=== PATIENT | female | born 1950 | race Hispanic/Latino ===

== ENCOUNTER 2018-01-03 14:47 | Inpatient (IN) | payer MEDICARE ==
[~2018-01-03] VITALS: Ht 162.6 cm; Wt 75.7 kg
[~2018-01-03 14:47] MED LIST: ADVAIR IH; ALBU6.7H IH; ASPI-1197 PO; ATOR10 PO; DRON400T2 PO; ESOM40CA PO; ISOS20TA7 PO; LINA5TAB PO; LISI10TA7 PO; METF500T6 PO; METH4TAB3 PO; METOPROLOL; METOPROLOL PO; NITR4.1S2 TL; PRAS10TA6 PO; VITAMIN D2 PO
[2018-01-03 15:25] LABS: BASOPHILS % (AUTO) 0.7 % (0.0-5.0); EOSINOPHILS % (AUTO) 0.8 % (0.0-8.0); HEMATOCRIT 41.3 % (36-48); LYMPHOCYTES % (AUTO) 13.3 % (21.0-51.0); MEAN CORPUSCULAR HEMOGLOBIN 28.4 pg (27.0-33.0); MEAN CORPUSCULAR HGB CONC 32.8 g/dL (32.0-36.0); MEAN CORPUSCULAR VOLUME 86.5 fL (79-99); MONOCYTES % (AUTO) 8.1 % (3.0-13.0); NEUTROPHILS % (AUTO) 77.1 % (40.0-77.0); PLATELET COUNT (AUTO) 185 K/uL (130-400); RED BLOOD CELL COUNT(AUTO) 4.77 MIL/uL (4.00-5.50); RED CELL DISTRIBUTION WIDTH 13.5 % (11.0-15.5); WHITE BLOOD COUNT (AUTO) 8.7 K/uL (4.8-10.8)
[2018-01-03 15:38] LABS: CREATININE 0.9 mg/dL (0.5-1.5); POTASSIUM 4.3 mmol/L (3.5-5.1)
[2018-01-03 15:43] LABS: ALBUMIN 3.7 g/dL (3.5-5.0); BILIRUBIN,TOTAL 0.5 mg/dL (0.2-1.0)
[2018-01-03 15:53] LABS: CREATINE KINASE MB 0.8 ng/mL (0.5-3.6); CREATINE KINASE, TOTAL 72 U/L (21-232); MYOGLOBIN 52 ng/mL (10-92); TROPONIN I < 0.04 ng/mL (0.00-0.06)
[2018-01-03] MEDS ORDERED: IPRATROPIUM/ALBUTEROL SULFATE 3 ML SOLUTION IH ONE ×4 (15:57→23:05)
[2018-01-03] MEDS ORDERED: METHYLPREDNISOLONE SOD SUCC 40MG/ML 1ML ONE (16:18)
[2018-01-03] MEDS ORDERED: AZITHROMYCIN 500MG+NS 250ML 250 ML IV ONE (20:05)
[2018-01-03] MEDS ORDERED: METHYLPREDNISOLONE SOD SUCC 125MG/2ML VIAL ONE (22:24)
[2018-01-04] VITALS (7 sets, daily range): BP systolic 111–166; BP diastolic 63–98
[2018-01-04] MEDS ORDERED: SUB TO ALBUTEROL 2.5MG/3ML NEBULES PER P&T IH SCH (02:30)
[2018-01-04] MEDS ORDERED: RANO500T3 PO (02:53)
[2018-01-04] MEDS ORDERED: ISOS60TA4 PO (02:53)
[2018-01-04] MEDS ORDERED: METF500T6 PO (02:53)
[2018-01-04] MEDS ORDERED: ALEN35TA31 PO (02:53)
[2018-01-04] MEDS ORDERED: FLUT1AER IH (02:53)
[2018-01-04] MEDS ORDERED: VITA1TAB39 PO (02:53)
[2018-01-04] MEDS ORDERED: METO-409 PO (02:53)
[2018-01-04] MEDS ORDERED: RIVA20TA PO (02:53)
[2018-01-04 03:45] LABS: HEMATOCRIT 40.6 % (36-48); MEAN CORPUSCULAR HEMOGLOBIN 28.9 pg (27.0-33.0); MEAN CORPUSCULAR HGB CONC 33.4 g/dL (32.0-36.0); MEAN CORPUSCULAR VOLUME 86.3 fL (79-99); NUCLEATED RED BLOOD CELLS 0.1 % (0.0-0.19); PLATELET COUNT (AUTO) 172 K/uL (130-400); RED BLOOD CELL COUNT(AUTO) 4.71 MIL/uL (4.00-5.50); RED CELL DISTRIBUTION WIDTH 13.8 % (11.0-15.5)
[2018-01-04 04:02] LABS: CREATININE 0.9 mg/dL (0.5-1.5); POTASSIUM 4.3 mmol/L (3.5-5.1)
[2018-01-04] MEDS ORDERED: NITROGLYCERIN 0.4 MG SL TAB SL PRN (05:00)
[2018-01-04] MEDS ORDERED: METHYLPREDNISOLONE SOD SUCC 125MG/2ML VIAL ONE (05:35)
[2018-01-04] MEDS ORDERED: GUAIFENESIN SUGAR-FREE 100 MG/5 ML UDCUP PO PRN (07:00)
[2018-01-04] MEDS ORDERED: ONDANSETRON HCL MDV 20ML 2 MG/ML VIAL IVP PRN (07:00)
[2018-01-04] MEDS ORDERED: ACETAMINOPHEN 325 MG TAB PO PRN (07:00)
[2018-01-04] MEDS: INSULIN R PO SSI SQ SCH ×4 (07:16→21:19)
[2018-01-04] MEDS ORDERED: ERGOCALCIFEROL (VITAMIN D2) 50,000 UNIT CAPSULE PO SCH (09:00)
[2018-01-04] MEDS ORDERED: ALENDRONATE SODIUM 35 MG TAB PO SCH (09:00)
[2018-01-04] MEDS: ***HM***Metoprolol Succinate 100 MG PO SCH (09:00)
[2018-01-04] MEDS: AZITHROMYCIN 500MG+NS 250ML 250 ML IV SCH (09:00)
[2018-01-04] MEDS: PANTOPRAZOLE SODIUM 40 MG TABLET.DR PO SCH (09:38)
[2018-01-04] MEDS: FAMOTIDINE 20MG TAB 20 MG TAB PO SCH ×2 (09:38→21:21)
[2018-01-04] MEDS: RANOLAZINE 500 MG TAB.SR.12H PO SCH ×2 (09:38→21:20)
[2018-01-04] MEDS: FOLIC ACID/VITAMIN B COMP W-C 1 MG CAPSULE PO SCH (09:38)
[2018-01-04] MEDS: ISOSORBIDE MONO 30MG TAB SR PO SCH (09:40)
[2018-01-04] MEDS: ASPIRIN 81MG TAB.CHEW PO SCH (09:41)
[2018-01-04] MEDS: DRONEDARONE HYDROCHLORIDE 400 MG TABLET PO SCH ×2 (09:41→21:20)
[2018-01-04] MEDS: LINAGLIPTIN 5 MG TABLET PO SCH (09:41)
[2018-01-04] MEDS ORDERED: BENZOCAINE/MENTH/CETYLPYRD CL 1 EACH LOZENGE MM PRN ×2 (09:45→10:15)
[2018-01-04] MEDS: METFORMIN HCL 500 MG TABLET PO SCH ×2 (09:51→18:26)
[2018-01-04] MEDS ORDERED: IPRATROPIUM/ALBUTEROL SULFATE 3 ML SOLUTION IH SCH (10:15)
[2018-01-04] MEDS ORDERED: ALBUTEROL SULFATE 0.083% 2.5 MG/3 ML INH IH PRN (10:15)
[2018-01-04] MEDS: IPRATROPIUM/ALBUTEROL SULFATE 3 ML SOLUTION IH SCH ×3 (11:04→23:09)
[2018-01-04] MEDS: METHYLPREDNISOLONE SOD SUCC 125MG/2ML VIAL IVP SCH ×2 (11:41→18:26)
[2018-01-04] MEDS: BENZONATATE 100 MG CAPSULE PO SCH ×2 (13:30→21:21)
[2018-01-04] MEDS ORDERED: RIVAROXABAN 20 MG TABLET PO SCH (17:00)
[2018-01-04] MEDS ORDERED: LISINOPRIL 10 MG TABLET PO SCH (21:00)
[2018-01-04] MEDS ORDERED: FLUTICASONE/VILANTEROL 1 EACH AER.POW.BA IH SCH (21:00)
[2018-01-04] MEDS ORDERED: ATORVASTATIN CALCIUM 10 MG TABLET PO SCH (21:00)
[2018-01-05] MEDS: GUAIFENESIN-CODEINE 5 ML SYRUP PO PRN ×2 (00:23→10:41)
[2018-01-05] MEDS: METHYLPREDNISOLONE SOD SUCC 125MG/2ML VIAL IVP SCH ×3 (02:23→12:29)
[2018-01-05 03:15] VITALS: BP 120/70
[2018-01-05] MEDS: IPRATROPIUM/ALBUTEROL SULFATE 3 ML SOLUTION IH SCH ×2 (05:57→11:07)
[2018-01-05] MEDS: INSULIN R PO SSI SQ SCH (06:45)
[2018-01-05 08:00] VITALS: BP 138/73
[2018-01-05] MEDS: ***HM***Metoprolol Succinate 100 MG PO SCH (09:00)
[2018-01-05] MEDS: FAMOTIDINE 20MG TAB 20 MG TAB PO SCH (10:36)
[2018-01-05] MEDS: ISOSORBIDE MONO 30MG TAB SR PO SCH (10:36)
[2018-01-05] MEDS: RANOLAZINE 500 MG TAB.SR.12H PO SCH (10:36)
[2018-01-05] MEDS: FOLIC ACID/VITAMIN B COMP W-C 1 MG CAPSULE PO SCH (10:36)
[2018-01-05] MEDS: DRONEDARONE HYDROCHLORIDE 400 MG TABLET PO SCH (10:37)
[2018-01-05] MEDS: ASPIRIN 81MG TAB.CHEW PO SCH (10:37)
[2018-01-05] MEDS: BENZONATATE 100 MG CAPSULE PO SCH (10:37)
[2018-01-05] MEDS: PANTOPRAZOLE SODIUM 40 MG TABLET.DR PO SCH (10:37)
[2018-01-05] MEDS: METFORMIN HCL 500 MG TABLET PO SCH (10:37)
[2018-01-05] MEDS: LINAGLIPTIN 5 MG TABLET PO SCH (10:37)
[2018-01-05] MEDS: AZITHROMYCIN 500MG+NS 250ML 250 ML IV SCH (10:43)
[2018-01-05 12:00] VITALS: BP 144/96
== END 2018-01-05 14:13 | disposition home or self-care (01) | DRG 203 ==
LOC: EDH 14:47 → OBSVTOIN 17:20 → EDHIP 17:20 → 3AH 01-04 01:07
PROVIDERS: ADMIT Internal Medicine; ATTEND Internal Medicine
DX: J45.901 Unspecified asthma with (acute) exacerbation (principal); I48.91 Unspecified atrial fibrillation; E11.9 Type 2 diabetes mellitus without complications; E78.5 Hyperlipidemia, unspecified; I10 Essential (primary) hypertension; I25.10 Atherosclerotic heart disease of native coronary artery without angina pectoris; Z79.01 Long term (current) use of anticoagulants; Z87.891 Personal history of nicotine dependence; Z90.710 Acquired absence of both cervix and uterus; Z95.0 Presence of cardiac pacemaker; Z95.5 Presence of coronary angioplasty implant and graft
CPT/HCPCS: 36415; 71046; 80048; 80053; 82550; 82553; 82948; 83874; 84484; 85025; 85027; 87804; 87880; 93005; 94640; 94664; 99291; J0456; J1815; J2920; J2930

== ENCOUNTER 2018-02-15 05:47 | Inpatient (IN) | payer MEDICARE ==
[~2018-02-15] VITALS: Ht 162.6 cm; Wt 79.8 kg
[~2018-02-15 05:47] MED LIST changes: -ADVAIR IH; +ALEN35TA31 PO; +FLUT1AER IH; -ISOS20TA7 PO; +ISOS60TA4 PO; -METH4TAB3 PO; +METO-409 PO; -METOPROLOL; -METOPROLOL PO; -PRAS10TA6 PO; +RANO500T3 PO; +RIVA20TA PO; +VITA1TAB39 PO
[2018-02-15 06:23] LABS: BASOPHILS % (AUTO) 0.6 % (0.0-5.0); EOSINOPHILS % (AUTO) 0.8 % (0.0-8.0); HEMATOCRIT 42.5 % (36-48); MEAN CORPUSCULAR HEMOGLOBIN 28.1 pg (27.0-33.0); MEAN CORPUSCULAR HGB CONC 33.1 g/dL (32.0-36.0); MEAN CORPUSCULAR VOLUME 84.7 fL (79-99); MONOCYTES % (AUTO) 6.5 % (3.0-13.0); NEUTROPHILS % (AUTO) 71.1 % (40.0-77.0); PLATELET COUNT (AUTO) 178 K/uL (130-400); RED BLOOD CELL COUNT(AUTO) 5.02 MIL/uL (4.00-5.50); WHITE BLOOD COUNT (AUTO) 9.5 K/uL (4.8-10.8)
[2018-02-15 06:33] LABS: APPEARANCE,URINE Clear (CLEAR); BILIRUBIN,URINE Negative (NEGATIVE); COLOR,URINE Yellow (YELLOW); GLUCOSE, URINE (UA) 500 mg/dL (NEGATIVE); KETONES,URINE Negative (NEGATIVE); LEUKOCYTE ESTERASE ,URINE Negative (NEGATIVE); NITRATE,URINE Negative (NEGATIVE); OCCULT BLOOD,URINE Trace (NEGATIVE); PROTEIN,URINE Negative (NEGATIVE)
[2018-02-15] MEDS ORDERED: MECLIZINE HCL 25 MG TABLET ONE (06:34)
[2018-02-15 06:37] LABS: CREATININE 0.8 mg/dL (0.5-1.5); POTASSIUM 4.2 mmol/L (3.5-5.1)
[2018-02-15 06:38] LABS: INR 1.09 (0.85-1.15); PARTIAL THROMBOPLASTIN TIME 25.7 SEC (26.3-35.5); PROTHROMBIN TIME 11.4 SEC (9.6-11.6)
[2018-02-15 06:42] LABS: ALBUMIN 3.2 g/dL (3.5-5.0); BILIRUBIN,TOTAL 0.4 mg/dL (0.2-1.0); TOTAL PROTEIN, SERUM 6.2 g/dL (6.0-8.3)
[2018-02-15 07:38] LABS: BACTERIA,URINE Rare /HPF (None Seen); SQUAMOUS EPITHELIAL CELL,UR Rare /HPF (0-2); WBC,URINE 0-1 /HPF (0-1)
[2018-02-15 07:39] LABS: MUCUS,URINE Few LPF (None Seen)
[2018-02-15] MEDS ORDERED: ASPIRIN 325 MG TABLET ONE (10:56)
[2018-02-15] MEDS ORDERED: DEXTROSE 50%-WATER 50 ML DISP.SYRIN IV PRN (11:00)
[2018-02-15] MEDS ORDERED: GLUCAGON 1MG KIT 1 MG ML IM PRN (11:00)
[2018-02-15 11:20] VITALS: BP 148/99
[2018-02-15] MEDS: INSULIN HUMULIN R 100 UNIT/ML 3ML SQ SCH ×3 (11:30→20:55)
[2018-02-15] MEDS ORDERED: HYDRALAZINE HCL 20 MG/ML VIAL IV PRN (11:45)
[2018-02-15] MEDS ORDERED: SODIUM CHLORIDE 0.9% 10 ML VIAL IVP PRN (11:45)
[2018-02-15] MEDS ORDERED: MECLIZINE HCL 25 MG TABLET PO PRN (11:45)
[2018-02-15] MEDS ORDERED: LINA5TAB PO (14:16)
[2018-02-15] MEDS ORDERED: DILT180C47 PO (14:16)
[2018-02-15 16:00] VITALS: BP 127/85
[2018-02-15 17:02] LABS: AMPHET/METH SCREEN,URINE NEGATIVE (NEGATIVE); BARBITURATE SCREEN, URINE NEGATIVE (NEGATIVE); BENZODIAZEPINES SCREEN,URINE NEGATIVE (NEGATIVE); CANNABINOID SCREEN,URINE NEGATIVE (NEGATIVE); COCAINE SCREEN,URINE NEGATIVE (NEGATIVE); OPIATE SCREEN,URINE NEGATIVE (NEGATIVE); PHENCYCLIDINE SCREEN,URINE NEGATIVE (NEGATIVE)
[2018-02-15 19:54] VITALS: BP 137/79
[2018-02-15 23:44] VITALS: BP 139/72
[2018-02-16 04:00] VITALS: BP 137/87
[2018-02-16] MEDS: INSULIN HUMULIN R 100 UNIT/ML 3ML SQ SCH ×4 (06:19→20:46)
[2018-02-16 07:21] VITALS: BP 151/104
[2018-02-16] MEDS ORDERED: ASPIRIN 325MG EC TAB 325 MG TABLET.DR PO SCH (09:00)
[2018-02-16 10:57] VITALS: BP 107/70
[2018-02-16] MEDS: METFORMIN HCL 500 MG TABLET PO SCH ×2 (11:19→16:25)
[2018-02-16 16:15] VITALS: BP 118/66
[2018-02-16 19:47] VITALS: BP 119/73
[2018-02-16] MEDS: DRONEDARONE HYDROCHLORIDE 400 MG TABLET PO SCH (20:53)
[2018-02-16] MEDS: RANOLAZINE 500 MG TAB.SR.12H PO SCH (20:53)
[2018-02-16] MEDS: ATORVASTATIN CALCIUM 10 MG TABLET PO SCH (20:53)
[2018-02-17] VITALS (7 sets, daily range): BP systolic 92–142; BP diastolic 61–79
[2018-02-17 04:17] LABS: BASOPHILS % (AUTO) 0.3 % (0.0-5.0); EOSINOPHILS % (AUTO) 0.5 % (0.0-8.0); HEMATOCRIT 40.3 % (36-48); LYMPHOCYTES % (AUTO) 19.6 % (21.0-51.0); MEAN CORPUSCULAR HEMOGLOBIN 28.4 pg (27.0-33.0); MEAN CORPUSCULAR HGB CONC 33.4 g/dL (32.0-36.0); MEAN CORPUSCULAR VOLUME 84.8 fL (79-99); MONOCYTES % (AUTO) 5.1 % (3.0-13.0); NEUTROPHILS % (AUTO) 74.5 % (40.0-77.0); PLATELET COUNT (AUTO) 193 K/uL (130-400); RED BLOOD CELL COUNT(AUTO) 4.76 MIL/uL (4.00-5.50); RED CELL DISTRIBUTION WIDTH 16.5 % (11.0-15.5); WHITE BLOOD COUNT (AUTO) 10.9 K/uL (4.8-10.8)
[2018-02-17 04:48] LABS: POTASSIUM 4.4 mmol/L (3.5-5.1)
[2018-02-17] MEDS: INSULIN HUMULIN R 100 UNIT/ML 3ML SQ SCH ×4 (05:59→22:20)
[2018-02-17] MEDS: METFORMIN HCL 500 MG TABLET PO SCH ×3 (08:00→17:00)
[2018-02-17] MEDS ORDERED: DILTIAZEM HCL 120 MG CAP.SR.24H PO SCH (09:00)
[2018-02-17] MEDS ORDERED: LISINOPRIL 10 MG TABLET PO SCH (09:00)
[2018-02-17] MEDS ORDERED: RIVAROXABAN 20 MG TABLET PO SCH (09:00)
[2018-02-17] MEDS ORDERED: DILTIAZEM HCL 180 MG CAP.SR.24H PO SCH (09:00)
[2018-02-17] MEDS: RANOLAZINE 500 MG TAB.SR.12H PO SCH ×2 (09:35→22:22)
[2018-02-17] MEDS: LINAGLIPTIN 5 MG TABLET PO SCH (09:35)
[2018-02-17] MEDS: DRONEDARONE HYDROCHLORIDE 400 MG TABLET PO SCH ×2 (09:35→22:22)
[2018-02-17] MEDS: VITAMIN B COMPLEX 1 CAPSULE PO SCH (09:35)
[2018-02-17] MEDS ORDERED: ONDANSETRON HCL 4 MG/2 ML VIAL ONE (13:20)
[2018-02-17] MEDS ORDERED: SODIUM CHLORIDE 0.9% 1000ML 1,000 ML IV ONE (13:34)
[2018-02-17] MEDS: PANTOPRAZOLE SODIUM 40 MG TABLET.DR PO SCH (18:16)
[2018-02-17] MEDS: ATORVASTATIN CALCIUM 10 MG TABLET PO SCH (22:22)
[2018-02-18] VITALS (13 sets, daily range): BP systolic 100–132; BP diastolic 63–76
[2018-02-18 04:00] LABS: INR 0.98 (0.85-1.15); PARTIAL THROMBOPLASTIN TIME 24.7 SEC (26.3-35.5); PROTHROMBIN TIME 10.3 SEC (9.6-11.6)
[2018-02-18] MEDS: INSULIN HUMULIN R 100 UNIT/ML 3ML SQ SCH ×4 (05:48→21:00)
[2018-02-18] MEDS: PANTOPRAZOLE SODIUM 40 MG TABLET.DR PO SCH (05:48)
[2018-02-18] MEDS: METFORMIN HCL 500 MG TABLET PO SCH ×3 (07:41→15:27)
[2018-02-18] MEDS: LINAGLIPTIN 5 MG TABLET PO SCH (09:00)
[2018-02-18] MEDS: VITAMIN B COMPLEX 1 CAPSULE PO SCH (09:00)
[2018-02-18] MEDS: DRONEDARONE HYDROCHLORIDE 400 MG TABLET PO SCH ×2 (10:09→21:47)
[2018-02-18] MEDS: RANOLAZINE 500 MG TAB.SR.12H PO SCH ×2 (10:09→21:48)
[2018-02-18 10:47] LABS: APPEARANCE,URINE Clear (CLEAR); BILIRUBIN,URINE Negative (NEGATIVE); COLOR,URINE Dark Yellow (YELLOW); GLUCOSE, URINE (UA) Negative (NEGATIVE); KETONES,URINE Negative (NEGATIVE); LEUKOCYTE ESTERASE ,URINE Negative (NEGATIVE); NITRATE,URINE Negative (NEGATIVE); OCCULT BLOOD,URINE Negative (NEGATIVE); PH,URINE 6.5 (5.0-8.0); PROTEIN,URINE Negative (NEGATIVE)
[2018-02-18 10:58] LABS: BACTERIA,URINE None Seen /HPF (None Seen); RBC,URINE 0-1 /HPF (0-1); WBC,URINE 0-1 /HPF (0-1)
[2018-02-18] MEDS ORDERED: MEPERIDINE-PF 25 MG/ML SYG ONE ×3 (10:59→12:29)
[2018-02-18] MEDS ORDERED: LIDOCAINE HCL 2% 20ML ONE (10:59)
[2018-02-18] MEDS ORDERED: MIDAZOLAM HCL 1 MG/ML 2ML VIAL ONE ×3 (11:00→12:29)
[2018-02-18] MEDS ORDERED: ENOXAPARIN SODIUM 80 MG/0.8 ML SQ SCH (15:17)
[2018-02-18] MEDS: ATORVASTATIN CALCIUM 10 MG TABLET PO SCH (21:47)
[2018-02-19 03:43] VITALS: BP 118/67
[2018-02-19 03:58] LABS: HEMATOCRIT 38.7 % (36-48); MEAN CORPUSCULAR HEMOGLOBIN 28.4 pg (27.0-33.0); MEAN CORPUSCULAR HGB CONC 33.4 g/dL (32.0-36.0); PLATELET COUNT (AUTO) 170 K/uL (130-400); RED BLOOD CELL COUNT(AUTO) 4.56 MIL/uL (4.00-5.50); RED CELL DISTRIBUTION WIDTH 16.8 % (11.0-15.5); WHITE BLOOD COUNT (AUTO) 8.6 K/uL (4.8-10.8)
[2018-02-19 04:14] LABS: CREATININE 0.8 mg/dL (0.5-1.5); POTASSIUM 4.2 mmol/L (3.5-5.1)
[2018-02-19] MEDS: INSULIN HUMULIN R 100 UNIT/ML 3ML SQ SCH (06:43)
[2018-02-19 07:44] VITALS: BP 140/80
[2018-02-19] MEDS ORDERED: METO-391 PO (09:18)
[2018-02-19] MEDS: VITAMIN B COMPLEX 1 CAPSULE PO SCH (10:40)
[2018-02-19] MEDS: LINAGLIPTIN 5 MG TABLET PO SCH (10:41)
[2018-02-19] MEDS: DRONEDARONE HYDROCHLORIDE 400 MG TABLET PO SCH (10:41)
[2018-02-19] MEDS: RANOLAZINE 500 MG TAB.SR.12H PO SCH (10:41)
[2018-02-19 11:12] VITALS: BP 148/85
== END 2018-02-19 14:00 | disposition home or self-care (01) | DRG 274 ==
LOC: EDH 05:47 → 2AH 10:04 → 2CH 02-16 12:48 → 2AH 02-16 17:28
PROVIDERS: ADMIT Family Medicine; ATTEND Family Medicine
PROC: 4A023FZ Measurement of Cardiac Rhythm, Percutaneous Approach (ICD-10-PCS; principal; 2018-02-18)
PROC: 4A0234Z Measurement of Cardiac Electrical Activity, Percutaneous Approach (ICD-10-PCS; 2018-02-18)
PROC: 02K83ZZ Map Conduction Mechanism, Percutaneous Approach (ICD-10-PCS; 2018-02-18)
PROC: 5A2204Z Restoration of Cardiac Rhythm, Single (ICD-10-PCS; 2018-02-18)
DX: I48.0 Paroxysmal atrial fibrillation (principal); I95.2 Hypotension due to drugs; T46.1X5A Adverse effect of calcium-channel blockers, initial encounter; I48.3 Typical atrial flutter; I47.1 Supraventricular tachycardia; E11.9 Type 2 diabetes mellitus without complications; E78.5 Hyperlipidemia, unspecified; I08.0 Rheumatic disorders of both mitral and aortic valves; I10 Essential (primary) hypertension; I25.10 Atherosclerotic heart disease of native coronary artery without angina pectoris; J45.909 Unspecified asthma, uncomplicated; I45.9 Conduction disorder, unspecified; J44.9 Chronic obstructive pulmonary disease, unspecified; Z79.899 Other long term (current) drug therapy; Z87.891 Personal history of nicotine dependence; Z95.0 Presence of cardiac pacemaker; Z79.01 Long term (current) use of anticoagulants; Z90.710 Acquired absence of both cervix and uterus; Z95.5 Presence of coronary angioplasty implant and graft
CPT/HCPCS: 36415; 70450; 71045; 80048; 80053; 80305; 81001; 82948; 84484; 85025; 85027; 85610; 85730; 93005; 93286; 93613; 93621; 93653; 93655; 99156; 99157; C1730; C1733; C1894; J1644; J1650; J1815; J2175; J2250; J2405; J3490; J7030

== ENCOUNTER → 2018-10-21 | Outpatient (CLI) | payer MEDICARE ==
[~2018-10-21] MED LIST changes: -ALEN35TA31 PO; -ASPI-1197 PO; +METF-444 PO; -METF500T6 PO; +METO-391 PO; -METO-409 PO; +REGADENOSON 0.4 MG/5 ML PF SYG IVP SCH; -VITAMIN D2 PO
== END | disposition home or self-care (01) ==
LOC: SHCH 08:53
PROVIDERS: ATTEND Internal Medicine Cardiovascular Disease
DX: I48.0 Paroxysmal atrial fibrillation (principal); I49.5 Sick sinus syndrome
CPT/HCPCS: 78452; 93017; 96374; A9500 ×2; J2785

== ENCOUNTER 2019-06-18 08:14 | Day surgery (SDC) | payer MEDICARE ==
[~2019-06-18] VITALS: Ht 157.5 cm; Wt 69.4 kg
[~2019-06-18 08:14] MED LIST changes: +AEC81 PO; -ALBU6.7H IH; +ALBU6.7H9 IH; +AMIO200T5 PO; +BENZ-51 PO; +CLON0.1T PO; +Cetirizine Hcl 5 Mg Tablet PO; -DRON400T2 PO; +IPRA3AMP24 IH; -LISI10TA7 PO; -METO-391 PO; +METO-409 PO; +MONT10TA21 PO; +OLME40TA18 PO; +PRED20TA3 PO; -REGADENOSON 0.4 MG/5 ML PF SYG IVP SCH
[2019-06-18] MEDS ORDERED: SODIUM CHLORIDE 0.9% 500ML 500 ML IV SCH (08:45)
[2019-06-18 09:00] VITALS: BP 184/93
--- NOTE | 2019-06-18 09:00 | NUR ---
PROCEDURE PT HERE FOR PROCEDURE. DENIES ANY SOB, PAIN AT THIS TIME. DAUGHTER AT BEDSIDE.
[2019-06-18 09:14] LABS: APPEARANCE,URINE Clear (CLEAR); BILIRUBIN,URINE Negative (NEGATIVE); COLOR,URINE Yellow (YELLOW); GLUCOSE, URINE (UA) >=1000 mg/dL (NEGATIVE); KETONES,URINE Negative (NEGATIVE); LEUKOCYTE ESTERASE ,URINE Negative (NEGATIVE); NITRATE,URINE Negative (NEGATIVE); OCCULT BLOOD,URINE Moderate (NEGATIVE); PROTEIN,URINE Negative (NEGATIVE)
[2019-06-18 09:16] LABS: BASOPHILS % (AUTO) 0.9 % (0.0-5.0); EOSINOPHILS % (AUTO) 3.3 % (0.0-8.0); HEMATOCRIT 36.8 % (36-48); LYMPHOCYTES % (AUTO) 30.7 % (21.0-51.0); MEAN CORPUSCULAR VOLUME 94.2 fL (79-99); MONOCYTES % (AUTO) 9.7 % (3.0-13.0); NEUTROPHILS % (AUTO) 55.4 % (40.0-77.0); PLATELET COUNT (AUTO) 145 K/uL (130-400); RED BLOOD CELL COUNT(AUTO) 3.91 MIL/uL (4.00-5.50); RED CELL DISTRIBUTION WIDTH 14.6 % (11.0-15.5); WHITE BLOOD COUNT (AUTO) 5.5 K/uL (4.8-10.8)
[2019-06-18 09:28] LABS: INR 1.07 (0.85-1.15); PARTIAL THROMBOPLASTIN TIME 31.7 SEC (26.3-35.5); PROTHROMBIN TIME 11.2 SEC (9.6-11.6)
[2019-06-18 09:36] LABS: CREATININE 0.9 mg/dL (0.5-1.5)
[2019-06-18 09:46] LABS: BACTERIA,URINE Rare /HPF (None Seen); SQUAMOUS EPITHELIAL CELL,UR Rare /HPF (0-2); WBC,URINE 0-1 /HPF (0-1)
[2019-06-18] MEDS ORDERED: SODIUM CHLORIDE 0.9% 1000ML 1,000 ML IV ONE (10:02)
--- NOTE | 2019-06-18 10:16 | NUR ---
PROCEDURE PT TAKEN TO PROCEDURE VIA BED BY FUR BLOWING MACHINE ATTENDANT STAFF.
[2019-06-18] MEDS ORDERED: IOHEXOL-350 50ML VIAL IV ONE (10:24)
[2019-06-18] MEDS ORDERED: LINA5TAB PO (11:06)
[2019-06-18 11:50] VITALS: BP 147/82
--- NOTE | 2019-06-18 11:50 | NUR ---
PROCEDURE PT BACK FROM PROCEDURE. DENIES ANY DISCOMFORTS. WILL CONTINUE TO MONITOR
[2019-06-18 12:05] VITALS: BP 140/77
[2019-06-18] MEDS ORDERED: ALEN35TA23 PO (12:09)
[2019-06-18 12:20] VITALS: BP 147/81
--- NOTE | 2019-06-18 12:30 | NUR ---
DISCHARGE ORAL AND WRITTEN DISCHARGE INSTRUCTIONS GIVEN TO PT AND PTS DAUGHTER. INSTRUCTED ON IMPORTANCE OF HOLDING METFORMIN FOR 48 HOURS AFTER PROCEDURE. BOTH PT AND DAUGHTER VERBALIZED UNDERSTANDING. NO OTHER QUESTIONS AT THIS TIME.
[2019-06-18 12:35] VITALS: BP 149/85
== END 2019-06-18 12:40 | disposition home or self-care (01) ==
LOC: CLH 08:14 → DAH 08:14 → CLH 12:40
PROVIDERS: ATTEND Internal Medicine Cardiovascular Disease
DX: I77.1 Stricture of artery (principal); I87.1 Compression of vein; I25.118 Atherosclerotic heart disease of native coronary artery with other forms of angina pectoris; E11.9 Type 2 diabetes mellitus without complications; I10 Essential (primary) hypertension; E78.5 Hyperlipidemia, unspecified; J45.909 Unspecified asthma, uncomplicated; I48.92 Unspecified atrial flutter; F41.9 Anxiety disorder, unspecified; Z79.899 Other long term (current) drug therapy; Z79.01 Long term (current) use of anticoagulants; Z79.82 Long term (current) use of aspirin; Z90.49 Acquired absence of other specified parts of digestive tract; Z90.710 Acquired absence of both cervix and uterus; Z98.890 Other specified postprocedural states; Z79.84 Long term (current) use of oral hypoglycemic drugs; Z82.49 Family history of ischemic heart disease and other diseases of the circulatory system
CPT/HCPCS: 36005; 36415; 71045; 75822; 80048; 81001; 85025; 85610; 85730; 93005; A4215; A4216; A4221; A4222; A4223 ×3; A4606; J7030; Q9967

== ENCOUNTER 2019-07-10 01:08 | Emergency (ER) | payer MEDICARE ==
[~2019-07-10 01:08] MED LIST changes: -ALBU6.7H9 IH; +ALEN35TA23 PO; -BENZ-51 PO; -FLUT1AER IH; -IPRA3AMP24 IH; -MONT10TA21 PO; -PRED20TA3 PO; -VITA1TAB39 PO
[2019-07-10 02:13] LABS: BASOPHILS % (AUTO) 0.7 % (0.0-5.0); EOSINOPHILS % (AUTO) 1.5 % (0.0-8.0); HEMATOCRIT 37.9 % (36-48); LYMPHOCYTES % (AUTO) 16.4 % (21.0-51.0); MEAN CORPUSCULAR HEMOGLOBIN 31.8 pg (27.0-33.0); MEAN CORPUSCULAR HGB CONC 33.9 g/dL (32.0-36.0); MONOCYTES % (AUTO) 7.7 % (3.0-13.0); NEUTROPHILS % (AUTO) 73.7 % (40.0-77.0); NUCLEATED RED BLOOD CELLS 0.1 % (0.0-0.19); PLATELET COUNT (AUTO) 136 K/uL (130-400); RED BLOOD CELL COUNT(AUTO) 4.03 MIL/uL (4.00-5.50); RED CELL DISTRIBUTION WIDTH 14.7 % (11.0-15.5); WHITE BLOOD COUNT (AUTO) 7.7 K/uL (4.8-10.8)
[2019-07-10 02:19] LABS: POTASSIUM 4.2 mmol/L (3.5-5.1)
[2019-07-10 02:32] LABS: ALBUMIN 3.5 g/dL (3.5-5.0); BILIRUBIN,DIRECT 0.1 mg/dL (0.0-0.3); BILIRUBIN,TOTAL 0.4 mg/dL (0.2-1.0); TOTAL PROTEIN, SERUM 6.3 g/dL (6.0-8.3)
[2019-07-10] MEDS ORDERED: HYDRALAZINE HCL 20 MG/ML VIAL ONE (02:47)
== END 2019-07-10 06:02 | disposition home or self-care (01) ==
LOC: EDH 01:08
DX: I16.0 Hypertensive urgency (principal); R51 Headache; I10 Essential (primary) hypertension; E11.9 Type 2 diabetes mellitus without complications; E78.5 Hyperlipidemia, unspecified; Z90.710 Acquired absence of both cervix and uterus; Z98.890 Other specified postprocedural states; Z90.49 Acquired absence of other specified parts of digestive tract; Z95.0 Presence of cardiac pacemaker
CPT/HCPCS: 36415; 70450; 71045; 80048; 80076; 82550; 84484; 85025; 93005; 96374; 99285; J0360

== ENCOUNTER 2019-08-12 05:49 | Day surgery (SDC) | payer MEDICARE ==
[2019-08-10 13:11] VITALS: BP 114/67
[2019-08-10 13:33] LABS: BASOPHILS % (AUTO) 0.9 % (0.0-5.0); EOSINOPHILS % (AUTO) 1.8 % (0.0-8.0); HEMATOCRIT 37.5 % (36-48); MEAN CORPUSCULAR HEMOGLOBIN 31.8 pg (27.0-33.0); MEAN CORPUSCULAR VOLUME 93.5 fL (79-99); MONOCYTES % (AUTO) 7.7 % (3.0-13.0); NEUTROPHILS % (AUTO) 58.6 % (40.0-77.0); NUCLEATED RED BLOOD CELLS 0.1 % (0.0-0.19); PLATELET COUNT (AUTO) 188 K/uL (130-400); RED BLOOD CELL COUNT(AUTO) 4.01 MIL/uL (4.00-5.50); RED CELL DISTRIBUTION WIDTH 14.5 % (11.0-15.5); WHITE BLOOD COUNT (AUTO) 7.3 K/uL (4.8-10.8)
[2019-08-10 13:39] LABS: APPEARANCE,URINE Clear (CLEAR); BILIRUBIN,URINE Negative (NEGATIVE); COLOR,URINE Dark Yellow (YELLOW); GLUCOSE, URINE (UA) 250 mg/dL (NEGATIVE); KETONES,URINE Trace mg/dL (NEGATIVE); LEUKOCYTE ESTERASE ,URINE Trace (NEGATIVE); NITRATE,URINE Negative (NEGATIVE); OCCULT BLOOD,URINE Negative (NEGATIVE); PROTEIN,URINE Trace mg/dL (NEGATIVE)
[2019-08-10 13:42] LABS: CREATININE 1.1 mg/dL (0.5-1.5); POTASSIUM 4.6 mmol/L (3.5-5.1)
[2019-08-10 13:46] LABS: INR 0.99 (0.85-1.15); PARTIAL THROMBOPLASTIN TIME 30.2 SEC (26.3-35.5); PROTHROMBIN TIME 10.4 SEC (9.6-11.6)
[2019-08-10 14:30] LABS: RBC,URINE 0-1 /HPF (0-1); WBC,URINE 0-1 /HPF (0-1)
[2019-08-10 14:31] LABS: BACTERIA,URINE Rare /HPF (None Seen); MUCUS,URINE Moderate LPF (None Seen); SQUAMOUS EPITHELIAL CELL,UR Rare /HPF (0-2)
[~2019-08-12] VITALS: Ht 162.6 cm; Wt 74.8 kg
[2019-08-12] VITALS (20 sets, daily range): BP systolic 80–129; BP diastolic 46–73
[~2019-08-12 05:49] MED LIST changes: -AEC81 PO; +ALBU18HF7 IH; +AMLO5TAB9 PO; +ASPI-555 PO; -Cetirizine Hcl 5 Mg Tablet PO; +MONT10TA24 PO; +RANO10004 PO; -RANO500T3 PO; +VITAMIN D PO
[2019-08-12] MEDS ORDERED: MIDAZOLAM HCL 1 MG/ML 2ML VIAL ONE (07:08)
[2019-08-12] MEDS ORDERED: BIVALIRUDIN 250 MG/VIAL IV ONE (07:08)
[2019-08-12] MEDS ORDERED: IOHEXOL 350 MG/ML 100ML INFUS..BTL IV ONE (07:08)
[2019-08-12] MEDS ORDERED: LIDOCAINE HCL 2% 20ML ONE (07:08)
[2019-08-12] MEDS ORDERED: NITROGLYCERIN 5 MG/ML 10 ML VIAL IV ONE (07:09)
[2019-08-12] MEDS ORDERED: SODIUM CHLORIDE 0.9% 1000ML 1,000 ML IV ONE (08:00)
[2019-08-12] MEDS ORDERED: SODIUM CHLORIDE 0.9% 1000ML 1,000 ML IV SCH (08:11)
[2019-08-12] MEDS ORDERED: DEXTROSE 50%-WATER 50 ML DISP.SYRIN IV PRN (08:15)
[2019-08-12] MEDS ORDERED: GLUCAGON 1MG KIT 1 MG ML IM PRN (08:15)
[2019-08-12] MEDS ORDERED: ATROPINE SULFATE 0.1 MG/ML 10 ML SYG IVP ONE (08:25)
[2019-08-12] MEDS ORDERED: INSULIN HUMULIN R 100 UNIT/ML 3ML SQ SCH (11:30)
== END 2019-08-12 15:05 | disposition home or self-care (01) ==
LOC: DAH 05:49
PROVIDERS: ATTEND Internal Medicine Cardiovascular Disease
DX: I25.10 Atherosclerotic heart disease of native coronary artery without angina pectoris (principal); I35.0 Nonrheumatic aortic (valve) stenosis; E11.9 Type 2 diabetes mellitus without complications; I10 Essential (primary) hypertension; E78.5 Hyperlipidemia, unspecified; J45.909 Unspecified asthma, uncomplicated; I48.0 Paroxysmal atrial fibrillation; F41.9 Anxiety disorder, unspecified; Z79.899 Other long term (current) drug therapy; Z79.01 Long term (current) use of anticoagulants; Z79.82 Long term (current) use of aspirin; Z87.891 Personal history of nicotine dependence; Z82.49 Family history of ischemic heart disease and other diseases of the circulatory system; Z90.49 Acquired absence of other specified parts of digestive tract; Z90.710 Acquired absence of both cervix and uterus; Z95.0 Presence of cardiac pacemaker; Z79.84 Long term (current) use of oral hypoglycemic drugs
CPT/HCPCS: 36415; 71045; 80048; 81001; 82948 ×2; 85025; 85610; 85730; 93005; 93458; A4215; A4216; A4221; A4222; A4223 ×3; A4606; A4663; C1894; J1644; J2250; J3490 ×2; J7030; Q9965 ×2; Q9967; 99156; 99157; J0461; J0583

== ENCOUNTER → 2021-07-28 | Outpatient (CLI) | payer MEDICARE ==
[~2021-07-28] MED LIST changes: -ALEN35TA23 PO; +ALEN35TA53 PO; -AMIO200T5 PO; +AMIO200T68 PO; +AMLO-257 PO; -AMLO5TAB9 PO; -ASPI-555 PO; +ASPI-556 PO; -ISOS60TA4 PO; +ISOS60TA77 PO; +MONT-39 PO; -MONT10TA24 PO; -RANO10004 PO; +RANO10005 PO
== END | disposition home or self-care (01) ==
LOC: SHCH 10:31
PROVIDERS: ATTEND Internal Medicine Cardiovascular Disease
DX: I08.3 Combined rheumatic disorders of mitral, aortic and tricuspid valves (principal); I27.20 Pulmonary hypertension, unspecified; I48.91 Unspecified atrial fibrillation; Z95.0 Presence of cardiac pacemaker
CPT/HCPCS: 93306; 93356

== ENCOUNTER 2022-04-09 06:52 | Day surgery (SDC) | payer MEDICARE ==
[2022-04-04 10:20] LABS: BASOPHILS % (AUTO) 1.1 % (0.0-5.0); EOSINOPHILS % (AUTO) 1.9 % (0.0-8.0); HEMATOCRIT 39.3 % (36-48); LYMPHOCYTES % (AUTO) 25.3 % (21.0-51.0); MEAN CORPUSCULAR HEMOGLOBIN 30.8 pg (27.0-33.0); MEAN CORPUSCULAR HGB CONC 33.3 g/dL (32.0-36.0); MEAN CORPUSCULAR VOLUME 92.5 fL (79-99); MONOCYTES % (AUTO) 6.5 % (3.0-13.0); NEUTROPHILS % (AUTO) 62.9 % (40.0-77.0); PLATELET COUNT (AUTO) 181 K/uL (130-400); RED BLOOD CELL COUNT(AUTO) 4.25 MIL/uL (4.00-5.50); RED CELL DISTRIBUTION WIDTH 12.5 % (11.0-15.5); WHITE BLOOD COUNT (AUTO) 6.4 K/uL (4.8-10.8)
[2022-04-04 10:36] LABS: CREATININE 1.2 mg/dL (0.5-1.5); POTASSIUM 4.7 mmol/L (3.5-5.1)
[2022-04-04 10:38] LABS: INR 1.02 (0.85-1.15); PROTHROMBIN TIME 11.1 SEC (9.6-11.6)
[2022-04-04 10:39] LABS: PARTIAL THROMBOPLASTIN TIME 29.9 SEC (26.3-35.5)
[2022-04-05 14:14] VITALS: BP 193/118
[2022-04-09] VITALS (10 sets, daily range): BP systolic 132–151; BP diastolic 77–105
[~2022-04-09] VITALS: Ht 157.5 cm; Wt 77.7 kg
[~2022-04-09 06:52] MED LIST changes: +0.9%NACL 1000ML 1,000 ML IV SCH; -ALBU18HF7 IH; -ALEN35TA53 PO; -AMLO-257 PO; -ASPI-556 PO; -ATOR10 PO; +ATOR40TA69 PO; -CLON0.1T PO; -ESOM40CA PO; +FERS325 PO; +HYDR12.54 PO; -MONT-39 PO; +OLME20TA22 PO; -OLME40TA18 PO; +PANT40TA54 PO; -RANO10005 PO; -VITAMIN D PO
[2022-04-09] MEDS ORDERED: OLME40TA18 PO (08:15)
== END 2022-04-09 10:50 | disposition home or self-care (01) ==
LOC: DAH 06:52 → CLH 06:52
PROVIDERS: ATTEND Internal Medicine Cardiovascular Disease
DX: I48.19 Other persistent atrial fibrillation (principal); I10 Essential (primary) hypertension; J45.909 Unspecified asthma, uncomplicated; I48.0 Paroxysmal atrial fibrillation; E11.9 Type 2 diabetes mellitus without complications; I49.5 Sick sinus syndrome; E78.5 Hyperlipidemia, unspecified; Z79.82 Long term (current) use of aspirin; Z79.01 Long term (current) use of anticoagulants; Z79.899 Other long term (current) drug therapy; Z98.890 Other specified postprocedural states; Z90.721 Acquired absence of ovaries, unilateral; Z95.5 Presence of coronary angioplasty implant and graft; Z90.710 Acquired absence of both cervix and uterus; Z90.49 Acquired absence of other specified parts of digestive tract
CPT/HCPCS: 80048; 85025; 85610; 85730; 87426; 36415; 92960; 82948; 93005 ×2; A4223 ×3; A4215; A7002; A4222; A4221; A4663; A4216; A4606; 99152

== ENCOUNTER → 2022-09-24 | Outpatient (CLI) | payer OTHER, MEDICARE ==
[~2022-09-24] MED LIST changes: -0.9%NACL 1000ML 1,000 ML IV SCH; -OLME20TA22 PO; +OLME40TA18 PO
== END | disposition home or self-care (01) ==
LOC: SHCH 14:22
PROVIDERS: ATTEND Internal Medicine Cardiovascular Disease
DX: I48.19 Other persistent atrial fibrillation (principal)
CPT/HCPCS: 93306

== ENCOUNTER 2022-10-27 22:51 | Observation (INO) | payer OTHER, MEDICARE ==
[~2022-10-27] VITALS: Ht 162.6 cm; Wt 73.5 kg
[2022-10-27 23:06] LABS: BASOPHILS % (AUTO) 1.1 % (0.0-5.0); EOSINOPHILS % (AUTO) 1.6 % (0.0-8.0); HEMATOCRIT 47.5 % (36-48); LYMPHOCYTES % (AUTO) 22.6 % (21.0-51.0); MEAN CORPUSCULAR HEMOGLOBIN 30.3 pg (27.0-33.0); MEAN CORPUSCULAR HGB CONC 32.6 g/dL (32.0-36.0); MEAN CORPUSCULAR VOLUME 92.8 fL (79-99); MONOCYTES % (AUTO) 8.7 % (3.0-13.0); NEUTROPHILS % (AUTO) 62.6 % (40.0-77.0); PLATELET COUNT (AUTO) 173 K/uL (130-400); RED BLOOD CELL COUNT(AUTO) 5.12 MIL/uL (4.00-5.50); WHITE BLOOD COUNT (AUTO) 7.1 K/uL (4.8-10.8)
[2022-10-27] MEDS ORDERED: ASPIRIN 325MG TAB PO STA (23:14)
[2022-10-27 23:15] LABS: CREATININE 1.7 mg/dL (0.5-1.5); POTASSIUM 5.1 mmol/L (3.5-5.1)
[2022-10-27] MEDS ORDERED: ASPIRIN 325MG EC TAB PO ONE (23:15)
[2022-10-27 23:17] LABS: INR 1.29 (0.85-1.15); PROTHROMBIN TIME 13.9 SEC (9.6-11.6)
[2022-10-27 23:20] LABS: ALBUMIN 4.1 g/dL (3.5-5.0); TOTAL PROTEIN, SERUM 7.2 g/dL (6.0-8.3)
[2022-10-27 23:26] LABS: B-TYPE NATRIURETIC PEPTIDE 412 pg/mL (0-100)
[2022-10-27] MEDS ORDERED: MORPHINE 2 MG SYG IVP ONE (23:30)
[2022-10-27] MEDS ORDERED: ONDANSETRON 4MG INJ IVP ONE (23:30)
[2022-10-27] MEDS ORDERED: NITROGLYCERIN 1GM OINT 1 INCH/1GM TD ONE (23:30)
[2022-10-28] MEDS ORDERED: IPRATROPIUM 0.5 MG/2.5 ML INH IH PRN (02:30)
[2022-10-28] MEDS ORDERED: ONDANSETRON 4MG INJ IVP PRN (02:30)
[2022-10-28] MEDS ORDERED: TEMAZEPAM 15 MG CAPSULE PO PRN (02:30)
[2022-10-28] MEDS ORDERED: CLONIDINE HCL 0.1 MG TABLET PO PRN (02:30)
[2022-10-28] MEDS ORDERED: LABETALOL 20MG SYG IV PRN (02:30)
[2022-10-28] MEDS ORDERED: HYDRALAZINE 20MG/ML VIAL IV PRN (02:30)
[2022-10-28] MEDS ORDERED: ACETAMINOPHEN 325 MG TAB PO PRN (02:30)
[2022-10-28] MEDS ORDERED: ALBUTEROL 0.083% 2.5 MG/3 ML INH IH PRN (02:30)
[2022-10-28] MEDS ORDERED: DOCUSATE SODIUM 100 MG CAP PO PRN (02:30)
[2022-10-28] MEDS ORDERED: LACTULOSE 20 GM/30 ML UDCUP PO PRN (02:30)
[2022-10-28] MEDS ORDERED: ACETAMINOPHEN 650 MG SUPPOSITORY RC PRN (02:30)
[2022-10-28 03:48] VITALS: BP 131/93
[2022-10-28] MEDS ORDERED: AMIO200T68 PO (04:06)
[2022-10-28] MEDS ORDERED: PIND10TA2 PO (04:06)
[2022-10-28] MEDS ORDERED: CLON0.1T PO (04:06)
[2022-10-28 08:00] VITALS: BP 139/84
[2022-10-28 08:02] LABS: ABG BASE EXCESS -2.5 mmol/L (-2.0-3.0); ABG HCO3 21.5 mmol/L (21.0-28.0); ABG OXYGEN SATURATION 94.5 % (95.0-99.0); ABG PCO2 36 mmHg (32-45)
[2022-10-28 08:14] LABS: HEMOGLOBIN A1C 7.8 % (4.0-6.0)
[2022-10-28] MEDS: PANTOPRAZOLE 40 MG TAB DR PO SCH (08:37)
[2022-10-28] MEDS: ISOSORBIDE MONO 60MG SR TAB PO SCH (08:37)
[2022-10-28] MEDS: AMIODARONE 200 MG TABLET PO SCH (08:38)
[2022-10-28] MEDS: FERROUS SULFATE 325 MG TABLET.DR PO SCH (08:38)
[2022-10-28] MEDS: PINDOLOL 5 MG TAB PO SCH ×2 (08:38→19:35)
[2022-10-28] MEDS: ASPIRIN 81MG CHEW TAB PO SCH (08:38)
[2022-10-28] MEDS: RIVAROXABAN 20 MG TABLET PO SCH (08:38)
[2022-10-28] MEDS: FAMOTIDINE 20MG TAB PO SCH (08:38)
[2022-10-28 12:00] VITALS: BP 122/68
[2022-10-28 16:00] VITALS: BP 118/79
[2022-10-28 19:30] VITALS: BP 128/74
[2022-10-28] MEDS ORDERED: ATORVASTATIN 40 MG TABLET PO SCH (21:00)
[2022-10-28 23:00] VITALS: BP 143/84
[2022-10-29 05:00] VITALS: BP 191/102
[2022-10-29] MEDS ORDERED: LORAZEPAM 2 MG/ML 1 ML VIAL IVP STA (05:10)
[2022-10-29] MEDS ORDERED: LORAZEPAM 2 MG/ML 1 ML VIAL ONE (05:16)
[2022-10-29 05:58] VITALS: BP 114/80
[2022-10-29 07:30] VITALS: BP 147/98
[2022-10-29 07:49] LABS: BASOPHILS % (AUTO) 0.9 % (0.0-5.0); EOSINOPHILS % (AUTO) 2.3 % (0.0-8.0); HEMATOCRIT 41.9 % (36-48); LYMPHOCYTES % (AUTO) 22.3 % (21.0-51.0); MEAN CORPUSCULAR HEMOGLOBIN 30.3 pg (27.0-33.0); MEAN CORPUSCULAR HGB CONC 33.7 g/dL (32.0-36.0); MEAN CORPUSCULAR VOLUME 90.1 fL (79-99); MONOCYTES % (AUTO) 7.2 % (3.0-13.0); NEUTROPHILS % (AUTO) 65.1 % (40.0-77.0); PLATELET COUNT (AUTO) 148 K/uL (130-400); RED BLOOD CELL COUNT(AUTO) 4.65 MIL/uL (4.00-5.50); WHITE BLOOD COUNT (AUTO) 6.4 K/uL (4.8-10.8)
[2022-10-29 08:03] LABS: CREATININE 1.3 mg/dL (0.5-1.5); MAGNESIUM 1.7 mg/dL (1.80-2.40); PHOSPHORUS 3.4 mg/dL (2.5-4.9); POTASSIUM 3.9 mmol/L (3.5-5.1)
[2022-10-29] MEDS: FAMOTIDINE 20MG TAB PO SCH (09:00)
[2022-10-29] MEDS: ASPIRIN 81MG CHEW TAB PO SCH (09:38)
[2022-10-29] MEDS: FERROUS SULFATE 325 MG TABLET.DR PO SCH (09:38)
[2022-10-29] MEDS: PANTOPRAZOLE 40 MG TAB DR PO SCH (09:39)
[2022-10-29] MEDS: PINDOLOL 5 MG TAB PO SCH (09:39)
[2022-10-29] MEDS: AMIODARONE 200 MG TABLET PO SCH (09:39)
[2022-10-29] MEDS: RIVAROXABAN 20 MG TABLET PO SCH (09:39)
[2022-10-29] MEDS: ISOSORBIDE MONO 60MG SR TAB PO SCH (09:39)
[2022-10-29 10:51] VITALS: BP 135/87
== END 2022-10-29 14:40 | disposition home or self-care (01) ==
LOC: EDH 22:51 → EDHIP 10-28 01:48 → 4DH 10-28 03:31
PROVIDERS: ADMIT Internal Medicine; ATTEND Internal Medicine
DX: R07.89 Other chest pain (principal); Z20.822 Contact with and (suspected) exposure to COVID-19; I25.110 Atherosclerotic heart disease of native coronary artery with unstable angina pectoris; I11.0 Hypertensive heart disease with heart failure; I50.32 Chronic diastolic (congestive) heart failure; E11.9 Type 2 diabetes mellitus without complications; E78.5 Hyperlipidemia, unspecified; I08.0 Rheumatic disorders of both mitral and aortic valves; I27.20 Pulmonary hypertension, unspecified; I48.0 Paroxysmal atrial fibrillation; J45.909 Unspecified asthma, uncomplicated; N17.9 Acute kidney failure, unspecified; Z90.49 Acquired absence of other specified parts of digestive tract; Z90.710 Acquired absence of both cervix and uterus; Z95.0 Presence of cardiac pacemaker; Z95.5 Presence of coronary angioplasty implant and graft; Z79.899 Other long term (current) drug therapy; Z98.890 Other specified postprocedural states; Z98.891 History of uterine scar from previous surgery
CPT/HCPCS: 96374; 96375 ×2; 99285; 84484 ×3; 80053; 83880; 85025 ×2; 85610; 87804 ×2; 36415 ×3; 87635; 71045; 93005 ×3; 83036; 82803; 85378; 82948 ×5; 36600; 83735; 84100; 80048; C9803; J2405; G0378 ×37; J0360; J2060

== ENCOUNTER → 2022-11-29 | Outpatient (CLI) | payer OTHER, MEDICARE ==
[~2022-11-29] MED LIST changes: +CLON0.1T PO; -HYDR12.54 PO; -METO-409 PO; -NITR4.1S2 TL; -OLME40TA18 PO; +PIND10TA2 PO
[2022-11-29 13:01] LABS: CREATININE 1.4 mg/dL (0.5-1.5); POTASSIUM 4.6 mmol/L (3.5-5.1)
== END | disposition home or self-care (01) ==
LOC: LAB 11:54
PROVIDERS: ATTEND Nurse Practitioner Acute Care
DX: I50.42 Chronic combined systolic (congestive) and diastolic (congestive) heart failure (principal)
CPT/HCPCS: 36415; 80048; 83880

== ENCOUNTER 2022-12-11 06:20 | Day surgery (SDC) | payer OTHER, MEDICARE ==
[2022-12-06 14:59] LABS: BASOPHILS % (AUTO) 1.2 % (0.0-5.0); EOSINOPHILS % (AUTO) 2.1 % (0.0-8.0); HEMATOCRIT 44.7 % (36-48); LYMPHOCYTES % (AUTO) 26.1 % (21.0-51.0); MEAN CORPUSCULAR HEMOGLOBIN 30.2 pg (27.0-33.0); MEAN CORPUSCULAR HGB CONC 32.2 g/dL (32.0-36.0); MEAN CORPUSCULAR VOLUME 93.7 fL (79-99); MONOCYTES % (AUTO) 9.8 % (3.0-13.0); NEUTROPHILS % (AUTO) 57.7 % (40.0-77.0); PLATELET COUNT (AUTO) 184 K/uL (130-400); RED BLOOD CELL COUNT(AUTO) 4.77 MIL/uL (4.00-5.50); RED CELL DISTRIBUTION WIDTH 13.3 % (11.0-15.5); WHITE BLOOD COUNT (AUTO) 6.7 K/uL (4.8-10.8)
[2022-12-06 15:04] LABS: CREATININE 1.4 mg/dL (0.5-1.5); POTASSIUM 4.4 mmol/L (3.5-5.1)
[2022-12-06 15:17] VITALS: BP 147/98
[~2022-12-11] VITALS: Ht 162.6 cm; Wt 72.8 kg
[~2022-12-11 06:20] MED LIST changes: +0.9% NACL 500ML IV.SOLN 500 ML IV SCH
[2022-12-11 06:30] VITALS: BP 125/90
[2022-12-11] MEDS ORDERED: 0.9%NACL 1000ML 1,000 ML IV ONE (08:29)
[2022-12-11] MEDS ORDERED: PROPOFOL 10 MG/ML 20ML VIAL IV ONE ×2 (09:57→11:06)
[2022-12-11] MEDS ORDERED: LIDOCAINE HCL MPF 1% 5ML VIAL ONE (11:05)
== END 2022-12-11 23:55 | disposition home or self-care (01) ==
LOC: DAH 06:20
PROVIDERS: ATTEND Internal Medicine Cardiovascular Disease
DX: I48.4 Atypical atrial flutter (principal); I49.5 Sick sinus syndrome; I48.0 Paroxysmal atrial fibrillation; I10 Essential (primary) hypertension; E11.9 Type 2 diabetes mellitus without complications; E78.5 Hyperlipidemia, unspecified; J45.909 Unspecified asthma, uncomplicated; I42.0 Dilated cardiomyopathy; I25.10 Atherosclerotic heart disease of native coronary artery without angina pectoris; Z79.899 Other long term (current) drug therapy; Z79.01 Long term (current) use of anticoagulants; Z90.710 Acquired absence of both cervix and uterus; Z90.49 Acquired absence of other specified parts of digestive tract; Z98.890 Other specified postprocedural states; Z95.5 Presence of coronary angioplasty implant and graft; Z79.84 Long term (current) use of oral hypoglycemic drugs; Z86.73 Personal history of transient ischemic attack (TIA), and cerebral infarction without residual deficits
CPT/HCPCS: 80048; 85025; 87426; 36415; 92960; 82948; 93005 ×2; A4223 ×3; J7030; J2704 ×2; J3490; A4615; A4215; A7002; A4222; A4221; A4663; A4216; A4606

== ENCOUNTER → 2023-11-01 | Outpatient (CLI) | payer OTHER, MEDICARE ==
[~2023-11-01] MED LIST changes: -0.9% NACL 500ML IV.SOLN 500 ML IV SCH; +AZIT250T PO; +BUDE0.5A3 IH; +HYDR12.54 PO; +IPRNEB IH; +MONT-46 PO; +OLME40TA18 PO
[2023-11-01] MEDS: REGADENOSON 0.4 MG/5 ML PF SYG IVP ONE (12:42)
== END | disposition home or self-care (01) ==
LOC: SHCH 08:36
PROVIDERS: ATTEND Internal Medicine Cardiovascular Disease
DX: R07.9 Chest pain, unspecified (principal); Z95.0 Presence of cardiac pacemaker
CPT/HCPCS: 78452; 96374; 93017; J2785; A9500 ×2

== ENCOUNTER 2023-11-11 05:47 | Day surgery (SDC) | payer OTHER, MEDICARE ==
[2023-11-07 08:56] LABS: BASOPHILS # (AUTO) 0.08 K/uL (0.00-0.20); BASOPHILS % (AUTO) 1.3 % (0.0-5.0); EOSINOPHILS # (AUTO) 0.22 K/uL (0.00-0.70); EOSINOPHILS % (AUTO) 3.5 % (0.0-8.0); HEMATOCRIT 36.2 % (36-48); LYMPHOCYTES # (AUTO) 1.4 K/uL (1.0-4.8); LYMPHOCYTES % (AUTO) 21.8 % (21.0-51.0); MEAN CORPUSCULAR HEMOGLOBIN 30.7 pg (27.0-33.0); MEAN CORPUSCULAR HGB CONC 32.6 g/dL (32.0-36.0); MEAN CORPUSCULAR VOLUME 94.3 fL (79-99); MONOCYTES # (AUTO) 0.5 K/uL (0.1-1.0); MONOCYTES % (AUTO) 7.1 % (3.0-13.0); NEUTROPHILS # (AUTO) 4.1 K/uL (1.8-7.7); NEUTROPHILS % (AUTO) 64.7 % (40.0-77.0); PLATELET COUNT (AUTO) 162 K/uL (130-400); RED BLOOD CELL COUNT(AUTO) 3.84 MIL/uL (4.00-5.50); RED CELL DISTRIBUTION WIDTH 12.1 % (11.0-15.5); WHITE BLOOD COUNT (AUTO) 6.3 K/uL (4.8-10.8)
[2023-11-07 08:59] VITALS: BP 153/77; PULSE 63; RESP 18
[2023-11-07 09:09] LABS: INR 1.22 (0.85-1.15)
[2023-11-07 09:11] LABS: PARTIAL THROMBOPLASTIN TIME 37.8 SEC (26.3-35.5)
[2023-11-07 09:12] LABS: ALBUMIN 3.5 g/dL (3.5-5.0); BILIRUBIN,TOTAL 0.7 mg/dL (0.2-1.0); CREATININE 1.5 mg/dL (0.5-1.5); POTASSIUM 4.6 mmol/L (3.5-5.1); TOTAL PROTEIN, SERUM 6.5 g/dL (6.0-8.3)
[~2023-11-11] VITALS: Ht 162.6 cm; Wt 72.6 kg
[2023-11-11] VITALS (8 sets, daily range): BP systolic 103–151; BP diastolic 47–73; PULSE 63–76; RESP 11–17
[~2023-11-11 05:47] MED LIST changes: -AZIT250T PO; -BUDE0.5A3 IH; -FERS325 PO; +FURO20TA4 PO; -HYDR12.54 PO; -IPRNEB IH; +MECL-302 PO; -MONT-46 PO; +RENA-VITE PO
[2023-11-11] MEDS: 0.9%NACL 1000ML 1,000 ML IV ONE (06:31)
[2023-11-11] MEDS ORDERED: LIDOCAINE HCL 1% MDV 50ML VIAL ONE (07:13)
[2023-11-11] MEDS ORDERED: BUPIVACAINE/PF 0.25% 30ML VIAL IJ ONE (07:13)
[2023-11-11] MEDS ORDERED: CEFAZOLIN SODIUM 1 GM VIAL ONE (07:14)
[2023-11-11] MEDS ORDERED: MEPERIDINE-PF 25 MG/ML SYG ONE ×2 (07:45→08:16)
[2023-11-11] MEDS ORDERED: MIDAZOLAM HCL 1 MG/ML 2ML VIAL ONE ×2 (07:45→08:16)
[2023-11-11] MEDS ORDERED: BACITRACIN 1 EACH PACKET TP ONE (08:14)
[2023-11-11] MEDS ORDERED: TRAM50TA4 PO (08:47)
[2023-11-11] MEDS ORDERED: ACETAMINOPHEN WITH CODEINE 1 TAB TAB PO PRN (09:00)
[2023-11-11] MEDS ORDERED: ACETAMINOPHEN 500 MG TABLET PO PRN (09:00)
== END 2023-11-11 11:30 | disposition home or self-care (01) ==
LOC: DAH 05:47
PROVIDERS: ATTEND Internal Medicine Cardiovascular Disease
DX: Z45.010 Encounter for checking and testing of cardiac pacemaker pulse generator [battery] (principal); I49.5 Sick sinus syndrome; I48.0 Paroxysmal atrial fibrillation; I25.10 Atherosclerotic heart disease of native coronary artery without angina pectoris; I10 Essential (primary) hypertension; E78.5 Hyperlipidemia, unspecified; E11.9 Type 2 diabetes mellitus without complications; J45.909 Unspecified asthma, uncomplicated; Z90.49 Acquired absence of other specified parts of digestive tract; Z90.710 Acquired absence of both cervix and uterus; Z95.5 Presence of coronary angioplasty implant and graft; Z79.899 Other long term (current) drug therapy; Z79.01 Long term (current) use of anticoagulants
CPT/HCPCS: 80053; 85025; 85610; 85730; 36415; 93005; 33228; 82948 ×2; C1785; J0690; J7030; J0665; J2250 ×2; J2175 ×2; J3490; A4215; A6251; A4222; A4221; A4663; A4216; A6258; A4606; A4223 ×3; 99156; 99157

== ENCOUNTER 2024-09-25 15:34 | Emergency (ER) | payer OTHER, MEDICARE ==
[~2024-09-25 15:34] MED LIST changes: +FOLI1TAB85 PO; -FURO20TA4 PO; -MECL-302 PO; +OLME20TA68 PO; -OLME40TA18 PO; +OMEP40CA21 PO; -PANT40TA54 PO; -RENA-VITE PO; +VENL-53 PO
--- NOTE | 2024-09-25 15:54 | NUR ---
PT JUST NOW PLACED IN MY ED BED 10
[2024-09-25 16:13] LABS: BASOPHILS # (AUTO) 0.09 K/uL (0.00-0.20); BASOPHILS % (AUTO) 1.3 % (0.0-5.0); EOSINOPHILS % (AUTO) 4.4 % (0.0-8.0); HEMATOCRIT 34.3 % (36-48); IMMATURE GRANULOCYTE ABSOLUTE 0.43 K/uL (0-1); LYMPHOCYTES # (AUTO) 1.6 K/uL (1.0-4.8); LYMPHOCYTES % (AUTO) 23.2 % (21.0-51.0); MEAN CORPUSCULAR HEMOGLOBIN 30.9 pg (27.0-33.0); MEAN CORPUSCULAR HGB CONC 32.7 g/dL (32.0-36.0); MEAN CORPUSCULAR VOLUME 94.5 fL (79-99); MONOCYTES # (AUTO) 0.6 K/uL (0.1-1.0); MONOCYTES % (AUTO) 8.1 % (3.0-13.0); NEUTROPHILS # (AUTO) 3.9 K/uL (1.8-7.7); NEUTROPHILS % (AUTO) 56.7 % (40.0-77.0); PLATELET COUNT (AUTO) 189 K/uL (130-400); RED BLOOD CELL COUNT(AUTO) 3.63 MIL/uL (4.00-5.50); RED CELL DISTRIBUTION WIDTH 13.1 % (11.0-15.5); WHITE BLOOD COUNT (AUTO) 6.8 K/uL (4.8-10.8)
[2024-09-25 16:21] LABS: CREATININE 2.1 mg/dL (0.5-1.0); POTASSIUM 5.1 mmol/L (3.5-5.1)
--- NOTE | 2024-09-25 16:28 | HMCIMG ---
CHEST 1VW REASON: CHEST TIGHTNESS, SOB COMPARISON: 06/30/2023 FINDINGS: There is mild cardiomegaly. There is no pulmonary vascular congestion. Bipolar pacemaker remains in place. IMPRESSION: 1. Mild cardiomegaly, no acute finding, no change.
--- NOTE | 2024-09-25 16:31 | ERN ---
General Chief Complaint: Palpitations Stated Complaint: PALPITATIONS Time Seen by MD: 15:39 History of Present Illness Initial Comments This is a case of a 73-year-old female with a past medical history of hypertension, diabetes mellitus type 2, CKD, CAD, pacemaker, atrial fibrillation, atrial flutter on Eliquis, stage II diastolic heart failure who presented to the ER with the complaints of intermittent palpitations, shortness of breath, dizziness, nausea, chest tightness since 3 weeks. She notes that she was seen by physician at clinic yesterday and was referred to the ER for further evaluation. She denies fever, chills, cold, cough, throat pain, abdominal pain, vomiting, abdominal pain, burning sensation when urinating/increased frequency of urination, constipation/diarrhea. Allergies: Coded Allergies: No Known Drug Allergies (Verified Allergy, 06/30/13) Home Meds Reported Medications Pindolol (Pindolol) 10 Mg Tablet, 15 MG PO BID, TAB 06/10/24 Linagliptin (Tradjenta) 5 Mg Tablet, 5 MG PO DAILY, TAB 06/10/24 Vit B Cmplx 3/FA/Vit C/Biotin (Kayce-Pradeep Rx Tablet) 1 Mg-60 Mg-300 Mcg Tablet, 1 EACH PO DAILY, TAB 06/10/24 Venlafaxine HCl (Venlafaxine HCl) 37.5 Mg Tablet, 37.5 MG PO DAILY, TAB 06/10/24 Omeprazole (Omeprazole) 40 Mg Capsule.dr, 40 MG PO DAILY, CAP 06/10/24 Olmesartan Medoxomil (Olmesartan Medoxomil) 20 Mg Tablet, 20 MG PO DAILY, TAB 06/10/24 Clonidine HCl (Clonidine HCl) 0.1 Mg Tablet, 0.1 MG PO DAILY PRN for IF SBP GREATER THAN 160, TAB 10/28/22 Amiodarone HCl (Amiodarone HCl) 200 Mg Tablet, 200 MG PO AM, TAB 10/28/22 Metformin HCl (Metformin HCl) 500 Mg Tablet, 500 MG PO BID, TAB 04/06/22 Rivaroxaban (Xarelto) 20 Mg Tablet, 20 MG PO DAILY, TAB 04/06/22 Atorvastatin Calcium (LIPITOR) 40 Mg Tablet, 40 MG PO HS, TAB 04/06/22 Isosorbide Mononitrate (Isosorbide Mononitrate ER) 60 Mg Tab.er.24h, 90 MG PO DAILY, TAB 01/04/18 Past Medical History Past Medical History: A-Fib, CAD, Diabetes-Type II, Heart Disease, Hypertension, Other Medical History Other: PACEMAKER Past Surgical History: Pacer/AICD, Other Surgical History Other: EYE LID Family History Family History: DM, HTN Social History Social History: Negative, Lives with family ROS Dictation CONSTITUTIONAL: No chills, no fever, no weakness, no diaphoresis, no malaise, dizziness HEAD/FACE: No signs of trauma. EENT: No eye pain, no blurred vision, no tearing, no double vision, no ear pain, no ear discharge, no nose pain, no nasal congestion, no throat pain, no throat swelling, no mouth pain. RESPIRATORY: No cough, no orthopnea, shortness of breath, no stridor, no wheezing. CARDIOVASCULAR: No chest pain, no edema, intermittent palpitations, no syncope. GASTROINTESTINAL/ABDOMINAL: No abdominal pain, no constipation, no diarrhea, nausea no vomiting. GENITOURINARY: No abnormal discharge, no dysuria, no frequent urination, no hematuria. No complaints of pain in the genitals. MUSCULOSKELETAL: No back pain, no gout, no joint pain, no joint swelling, no muscle pain, no muscle stiffness, no neck pain. INTEGUMENTARY: No change in color, no change in hair/nails, no dryness, no lesion, no lumps, no rash. NEUROLOGICAL/PSYCH: No anxiety, not depressed, no emotional problem, no headache, no numbness, no pre-existing deficit, no history of seizures, no tremors, no weakness. HEMATOLOGIC/LYMPHATIC: Not anemic, no history of blood clots, no apparent bleeding, no bruising, glands not swollen. All Systems Negative, Except as Noted. Physical Exam Physical Exam Dictation Physical Exam Dictation VITAL SIGNS: Reviewed. GENERAL APPEARANCE: Alert, oriented x3, no acute distress HEAD AND FACE: Non-traumatic. EYES: PERRL, pink conjunctivas, eyelid no trauma, anterior chamber clear. NOSE: No discharge, no bleeding. OROPHARYNX: Mouth normal, teeth no caries, tongue pink. Pharynx clear, no erythema. Tonsils no exudates, no abscesses noted. Mucous membrane moist. NECK: Supple, non-tender, no thyromegaly, no masses, no JVD, no bruits. BREAST: Deferred. CHEST: No tenderness, no crepitus, no paradoxical movement, no retractions. LUNGS: Clear, well-ventilated, symmetric, no rales, no wheezing, no rhonchi, no stridor, good breath sounds bilaterally. HEART: Regular rate, no gallops. VASCULAR: No peripheral edema. ABDOMEN: Soft, positive bowel sounds, nondistended, no guarding, nontender, no rebound, no masses no hepatomegaly, no splenomegaly, no Boyce's sign, no hernias. RECTAL: Deferred. GENITAL: Deferred. NEUROLOGICAL: Normal speech, gross motor function intact, gross sensory function intact. MUSCULOSKELETAL: Neck nontender, full range of motion, back nontender, full range of motion. EXTREMITIES: Nontender, full range of motion. SKIN: Color pink, dry, no turgor, no rash, no lacerations, no abrasions, no contusions. LYMPHATICS: Deferred. Results Laboratory and Microbiology Lab and Micro Result Laboratory Tests Test 09/25/24 16:06 White Blood Count 6.8 K/uL (4.8-10.8) Red Blood Count 3.63 MIL/uL (4.00-5.50) L Hemoglobin 11.2 g/dL (12.0-16.0) L Hematocrit 34.3 % (36-48) L Mean Corpuscular Volume 94.5 fL (79-99) Mean Corpuscular Hemoglobin 30.9 pg (27.0-33.0) Mean Corpuscular Hemoglobin Concent 32.7 g/dL (32.0-36.0) Red Cell Distribution Width 13.1 % (11.0-15.5) Platelet Count 189 K/uL (130-400) Mean Platelet Volume 10.4 fL (7.5-10.5) Immature Granulocyte % (Auto) 6.3 % (0-1) H Neutrophils (%) (Auto) 56.7 % (40.0-77.0) Lymphocytes (%) (Auto) 23.2 % (21.0-51.0) Monocytes (%) (Auto) 8.1 % (3.0-13.0) Eosinophils (%) (Auto) 4.4 % (0.0-8.0) Basophils (%) (Auto) 1.3 % (0.0-5.0) Neutrophils # (Auto) 3.9 K/uL (1.8-7.7) Lymphocytes # (Auto) 1.6 K/uL (1.0-4.8) Monocytes # (Auto) 0.6 K/uL (0.1-1.0) Eosinophils # (Auto) 0.30 K/uL (0.00-0.70) Basophils # (Auto) 0.09 K/uL (0.00-0.20) Absolute Immature Granulocyte (auto 0.43 K/uL (0-1) Nucleated Red Blood Cells 0.0 % (0.0-0.19) Prothrombin Time 11.5 SEC (9.6-11.6) Prothromb Time International Ratio 1.03 (0.85-1.15) Activated Partial Thromboplast Time 29.7 SEC (26.3-35.5) D-Dimer Quantitative (PE/DVT) 291 ng/mL (0-500) Sodium Level 141 mmol/L (136-145) Potassium Level 5.1 mmol/L (3.5-5.1) Chloride Level 106 mmol/L (101-111) Carbon Dioxide Level 27 mmol/L (21-32) Blood Urea Nitrogen 33 mg/dL (7-18) H Creatinine 2.1 mg/dL (0.5-1.0) H Glomerular Filtration Rate Calc 24 mL/min (>90) Random Glucose 244 mg/dL (70-105) H Total Calcium 8.9 mg/dL (8.5-10.1) Troponin I High Sensitivity 10 ng/L (4-50) B-Type Natriuretic Peptide 217 pg/mL (0-100) H EKG/XRAY/US/CT/MRI X-RAY Comment PROCEDURE: CXR1VW - CHEST 1VW CHEST 1VW REASON: CHEST TIGHTNESS, SOB COMPARISON: 06/30/2023 FINDINGS: There is mild cardiomegaly. There is no pulmonary vascular congestion. Bipolar pacemaker remains in place. IMPRESSION: 1. Mild cardiomegaly, no acute finding, no change. MDM MDM Potential differential diagnoses include: Electrolyte imbalance Cardiac arrhythmia Hypoglycemia Medication side effects Assessment: We will order CBC to rule any anemia, infections and to evaluate the overall health of the patient. CMP was ordered in order to assess various electrolytes, kidney function, liver function ,protein levels and blood glucose levels, EKG, troponin, BNP levels, chest x-ray I will re-evaluate the patient after treatment and diagnostic exams have returned to determine whether they require further testing, can be safely discharged home, or need admission for further treatment and evaluation. Given the social determinants of health affecting care, including literacy, access to medical care, prescription drug management, and [id number] drugs, I will ensure that treatment plans are tailored accordingly. Revaluation : Patient is alert awake and oriented. Hemodynamically stable. Labs BUN 33, creatinine 2.1. BNP 217. Values in similar range when compared to the previous lab values over the years. Troponin levels are normal. EKG resulted in ventricular paced rhythm. Chest x-ray resulted in Mild cardiomegaly, no acute finding, no change. Disposition: ED Course Orders Procedure Category Date Status Time Cbc With Differential LAB 09/25/24 Complete 15:55 Basic Metabolic Panel LAB 09/25/24 Complete 15:55 Troponin I High LAB 09/25/24 Complete Sensitivity 15:55 B-Type Natriuretic LAB 09/25/24 Complete Peptide 15:55 Chest 1vw RAD 09/25/24 Resulted 15:55 Urinalysis Profile LAB 09/25/24 Logged 15:55 D-Dimer LAB 09/25/24 Complete 16:01 Pt And Ptt LAB 09/25/24 Complete 16:01 Vital Signs Date Time Temp Pulse Resp B/P (MAP) Pulse Ox O2 Delivery O2 Flow Rate FiO2 09/25/24 18:48 102 16 127/90 96 Room Air* 0 21 09/25/24 15:46 97.9 99 20 137/92 97 Room Air* 0 21 09/25/24 15:39 97.9 99 20 137/92 97 Room Air 0 DX & DISP Disposition: Discharge Departure Impression: Primary Impression: Palpitations Additional Impressions: History of permanent cardiac pacemaker placement, Diabetes mellitus, Hypertension, Hyperlipidemia Condition: Stable Additional Instructions: Patient and the caregiver have been informed of all the diagnostic tests and the imaging conducted during the today's visit to the emergency room and has verbalized understanding of the results I have personally reviewed and int erpreted all diagnostic exams performed here in the ER today as well as the vital signs documented by the nursing staff. The patient is now being discharged to home and should follow up with the primary care physician or the specialist as directed by the ER staff. Follow-up with primary care provider in 1 to 2 days. Take medications as directed here in the emergency room. Okay to continue home medications unless otherwise discussed during your visit in the emergency room today. Return to your nearest emergency room if symptoms worsen or if there is no improvement. Call 911 if you need immediate assistance. Take Tylenol or Motrin [id number] as needed and if no contraindications are present. Increase oral hydration. A wound culture or urine culture was ordered here in the emergency room department please follow-up with primary care provider and advise them to get repeat ports from our facility. If you had any Aroldo wrap/splints that were applied here, please do not remove them until you see your primary care or specialty. Referrals: FRANCISCO J JIMENEZ M.D. (PCP) I have examined patient, & reviewed all documents, & agreed W/ the Diagnosis, and Plan 7:00 p.m. patient was signed out to me by a.m. physician and resident. Ms. Haynes is a 73-year-old delightful female with multiple medical problems history of atrial fibrillation pacemaker/AICD placement apparently was instructed by Dr. Bustamante to come to the emergency room as she was having palpitations and shortness of breath. She is compliant with her medications and also takes Xarelto. Someone called her and scared her to come here but she stated that she was feeling very well and does not have any major issues. I independently evaluated her and reviewed all her information including labs old echo and other diagnostic information. Temperature 97.9 pulse 99 respirations 20 blood pressure 137/92 with a pulse oximetry of 97% General: awake, alert, NAD obese female. Spouse at bedside Head/Face: Normocephalic, atraumatic Eyes: PERRL, EOMI, vision at baseline ENT: oral cavity clear, TMs clear, no signs of infection Neck: Trachea midline, supple, no nuchal rigidity Cardiovascular: RRR, normal S1/S2, grade 3/6 diastolic murmur in the aortic area no JVD Respiratory: CTAB, no respiratory distress, No rales or wheezes Abdomen: Soft, non-tender, non-distended, normal bowel sounds, no guarding or rebound. Skin: Warm, dry, normal turgor, no rash MS/Extremity: Pulses equal, no cyanosis, neurovascular intact, FROM Neuro: COAx4, GCS 15, strength 5/5, CN 2-12 intact, normal cerebellar exam, normal gait, Psych: Normal behavior, mood, and affect normal Extremities-trace edema without any palpable cords, Homans sign is negative Labs CBC showed a hemoglobin of 11.2 BNP 7 is significant for a potassium of 5.1 bicarbonate 27 BUN and creatinine are 33 and 2.1 with a glucose of 214. Troponins are negative brain natriuretic peptide is 217. Chest x-ray showed cardiomegaly and chronic changes but nothing acute. I also reviewed the echocardiogram done in 2021 which showed diastolic dysfunction normal EF moderate to severe and moderate AR. Lexiscan on 11/01/2023 was unremarkable for any acute ischemic changes. Impression - palpitations-intermittent atrial fibrillation with rapid ventricular response Coronary artery disease, diabetes mellitus, hypertension, pacemaker/AICD We have attempted to call the [employer] for device interrogation all day without any return calls. Patient states that she feels good and she is scheduled for cardiac ablation procedure by Dr. Alfred Enamorado on Saturday and she would like to be discharged to home. I updated her on all the labs available information chest x-ray and a being unable to interrogate her device. She and spouse verbalized full understanding and still insist that they would like to go home MERY CANTOR MD Sep 25, 2024 16:31 LOU MCCAIN MD Sep 25, 2024 19:47
[2024-09-25 16:32] LABS: INR 1.03 (0.85-1.15); PROTHROMBIN TIME 11.5 SEC (9.6-11.6)
[2024-09-25 16:34] LABS: PARTIAL THROMBOPLASTIN TIME 29.7 SEC (26.3-35.5)
[2024-09-25 16:36] LABS: B-TYPE NATRIURETIC PEPTIDE 217 pg/mL (0-100)
--- NOTE | 2024-09-25 16:44 | NUR ---
DEVICE INTERROGATION: DEVICE WAS INTERROGATED AND THE SERIAL NUMBER WAS WRITTEN AND CALLED INTO [employer]. THEY WILL FAX REPORT TO THE SUPERVISORS OFFICE.
--- NOTE | 2024-09-25 18:49 | NUR ---
STILL PENDING REPORT TO BE FAXED BY [employer]
--- NOTE | 2024-09-25 19:12 | NUR ---
REPORT ENDORSED TO [place] RN
[2024-09-25 20:03] VITALS: BP 127/90; PULSE 99; RESP 20; TEMP 97.9; O2SAT 98
--- NOTE | 2024-09-26 04:54 | EKG ---
[facility] Test Date: 2024-09-25 Test Time: 15:42:09 Pat Name: MARSHA BLEDSOE Department: [facility] Room: Gender: F Assistant Principal: [id number] : 1950 Requested By: MERY CANTOR Order Number: [id number] Reading MD: Young Jenkins Measurements Intervals [place] Rate: 98 P: 0 OK: 120 QRS: -79 QRSD: 210 T: 108 QT: 480 QTc: 615 Interpretive Statements Ventricular-paced complexes Compared to ECG 06/11/2024 10:04:10 Sinus rhythm no longer present ST (T wave) deviation no longer present Possible ischemia no longer present Prolonged QT interval no longer present Electronically Signed On 09-26-2024 08:00:47 MITERING MACHINE OPERATOR by Young Jenkins Please click the below link to view image of tracing.
== END 2024-09-25 20:11 | disposition home or self-care (01) ==
LOC: EDH 15:34
DX: I13.0 Hypertensive heart and chronic kidney disease with heart failure and stage 1 through stage 4 chronic kidney disease, or unspecified chronic kidney disease (principal); E11.22 Type 2 diabetes mellitus with diabetic chronic kidney disease; N18.9 Chronic kidney disease, unspecified; E78.5 Hyperlipidemia, unspecified; R00.2 Palpitations; I25.10 Atherosclerotic heart disease of native coronary artery without angina pectoris; I48.91 Unspecified atrial fibrillation; Z79.01 Long term (current) use of anticoagulants; Z79.84 Long term (current) use of oral hypoglycemic drugs; Z79.899 Other long term (current) drug therapy; Z95.810 Presence of automatic (implantable) cardiac defibrillator
CPT/HCPCS: 36415; 71045; 80048; 83880; 84484; 85025; 85378; 85610; 85730; 93005; 99285

== ENCOUNTER → 2024-10-30 | Outpatient (CLI) | payer OTHER, MEDICARE ==
[~2024-10-30] VITALS: Ht 157.5 cm; Wt 72.0 kg
[~2024-10-30] MED LIST changes: +APIX5TAB PO; +EMPA10TA PO; +FOLI0.8T22 PO; +METO-391 PO; +NITR0.4T50 SL
[2024-10-30 10:29] LABS: BASOPHILS # (AUTO) 0.07 K/uL (0.00-0.20); BASOPHILS % (AUTO) 1.1 % (0.0-5.0); EOSINOPHILS # (AUTO) 0.21 K/uL (0.00-0.70); EOSINOPHILS % (AUTO) 3.4 % (0.0-8.0); HEMATOCRIT 42.1 % (36-48); IMMATURE GRANULOCYTE ABSOLUTE 0.12 K/uL (0-1); LYMPHOCYTES # (AUTO) 1.2 K/uL (1.0-4.8); LYMPHOCYTES % (AUTO) 19.4 % (21.0-51.0); MEAN CORPUSCULAR HEMOGLOBIN 31.2 pg (27.0-33.0); MEAN CORPUSCULAR HGB CONC 32.5 g/dL (32.0-36.0); MEAN CORPUSCULAR VOLUME 95.9 fL (79-99); MONOCYTES # (AUTO) 0.5 K/uL (0.1-1.0); MONOCYTES % (AUTO) 7.5 % (3.0-13.0); NEUTROPHILS # (AUTO) 4.1 K/uL (1.8-7.7); NEUTROPHILS % (AUTO) 66.6 % (40.0-77.0); PLATELET COUNT (AUTO) 175 K/uL (130-400); RED BLOOD CELL COUNT(AUTO) 4.39 MIL/uL (4.00-5.50); RED CELL DISTRIBUTION WIDTH 13.3 % (11.0-15.5); WHITE BLOOD COUNT (AUTO) 6.1 K/uL (4.8-10.8)
[2024-10-30 10:33] LABS: POTASSIUM 4.4 mmol/L (3.5-5.1)
[2024-10-30 10:35] LABS: INR 1.18 (0.85-1.15)
[2024-10-30 10:36] LABS: PARTIAL THROMBOPLASTIN TIME 29.7 SEC (26.3-35.5)
[2024-10-30 10:45] VITALS: BP 78/64; PULSE 109; RESP 18; TEMP 97.2
--- NOTE | 2024-10-30 13:10 | NUR ---
REPORT MARINA RODRIGUEZ BAG HANGER NOTIFIED PT C/O DIZZINESS AND LOW B/PS AND STATING SHE IS ON A LOT OF HEART AND B/P MEDS. PT WAS ADVISED TO GO TO ER FOR FURTHER EVAL, BUT REFUSED. PT IS SCHEDULED FOR ECHOCARDIOGRAM ON SATURDAY. RECEIVED INSTRUCTIONS TO HAVE PT HOLD FUROSEMIDE AND ISOSORBIDE. PTS SPOUSE NOTIFIED WITH CHANGES AND VOICED UNDERSTANDING.
--- NOTE | 2024-10-31 07:26 | EKG ---
[facility] Test Date: 2024-10-30 Test Time: 11:02:08 Pat Name: MARSHA BLEDSOE Department: [facility] Room: Gender: F [employer] Operations Crew Member: [id number] : 1950 Requested By: MCKENZIE GUERRA Order Number: [id number] Reading MD: Maged Witt Measurements Intervals [place] Rate: 93 P: 0 [place]: 123 QRS: -69 QRSD: 194 T: 102 QT: 476 QTc: 591 Interpretive Statements A-V dual-paced rhythm with some inhibition Compared to ECG 09/25/2024 15:42:09 No significant changes Electronically Signed On 11-02-2024 15:59:58 TDP DISPLAYS ANALYST by Maged Witt Please click the below link to view image of tracing.
== END ==
LOC: EDSTATUS 09:00 → DAH 09:16
PROVIDERS: ATTEND Internal Medicine Cardiovascular Disease
DX: Z01.818 Encounter for other preprocedural examination (principal); I48.4 Atypical atrial flutter; I48.19 Other persistent atrial fibrillation; I10 Essential (primary) hypertension; F41.9 Anxiety disorder, unspecified; E78.5 Hyperlipidemia, unspecified; E11.9 Type 2 diabetes mellitus without complications; J44.9 Chronic obstructive pulmonary disease, unspecified; Z87.891 Personal history of nicotine dependence; Z79.01 Long term (current) use of anticoagulants; Z82.49 Family history of ischemic heart disease and other diseases of the circulatory system; Z80.9 Family history of malignant neoplasm, unspecified; Z79.899 Other long term (current) drug therapy
CPT/HCPCS: 36415; 80048; 85025; 85610; 85730; 93005

== ENCOUNTER 2024-11-19 16:18 | Inpatient (IN) | payer OTHER, MEDICARE ==
[~2024-11-19] VITALS: Ht 157.5 cm; Wt 70.8 kg
[~2024-11-19 16:18] MED LIST changes: -CLON0.1T PO; -FOLI1TAB85 PO; -ISOS60TA77 PO; -OLME20TA68 PO; -PIND10TA2 PO; -RIVA20TA PO; -VENL-53 PO; +linAGLIPtin 5 MG TABLET PO ONE
[2024-11-19 17:18] LABS: HEMATOCRIT 42.2 % (36-48); MEAN CORPUSCULAR HEMOGLOBIN 30.2 pg (27.0-33.0); MEAN CORPUSCULAR HGB CONC 32.5 g/dL (32.0-36.0); RED BLOOD CELL COUNT(AUTO) 4.54 MIL/uL (4.00-5.50); WHITE BLOOD COUNT (AUTO) 6.4 K/uL (4.8-10.8)
[2024-11-19 17:29] LABS: POTASSIUM 4.1 mmol/L (3.5-5.1)
[2024-11-19] MEDS ORDERED: FENTanyl CITRate PF 50 MCG/1 ML 2ML VIAL IVP ONE (17:30)
[2024-11-19] MEDS ORDERED: MIDAZOLAM HCL 1 MG/ML 2ML VIAL IVP ONE (17:30)
[2024-11-19 17:33] LABS: ALBUMIN 3.8 g/dL (3.5-5.0); BILIRUBIN,TOTAL 0.6 mg/dL (0.2-1.0); TOTAL PROTEIN, SERUM 6.9 g/dL (6.0-8.3)
[2024-11-19] MEDS ORDERED: MAGNESIUM 2GM PREMIX 50ML 50 ML IV PRN (18:30)
[2024-11-19] MEDS ORDERED: PoTASSium chloRIDE 20MEQ ER 20 MEQ ERTAB PO PRN (18:30)
[2024-11-19 18:50] LABS: INR 1.13 (0.85-1.15); PROTHROMBIN TIME 11.8 SEC (9.6-11.6)
[2024-11-19 18:51] LABS: PARTIAL THROMBOPLASTIN TIME 27.5 SEC (26.3-35.5)
--- NOTE | 2024-11-19 19:27 | HP ---
[facility] HISTORY [facility] PHYSICAL Date of Service: Nov 19, 2024 Time of Service: 19:27 HISTORY OF PRESENT ILLNESS: 74-year-old female past medical history of diabetes mellitus type 2, coronary artery disease status post multi-vessel stent, moderate aortic valve stenosis, moderate mitral valve stenosis, sick sinus syndrome drips due to supposed dual- chamber pacemaker placement, history of orthostatic hypotension, hypertension, atrial arrhythmias, paroxysmal atrial fibrillation on chronic amiodarone therapy developed persistent atrial flutter and underwent direct current cardioversion on 06/2024 with recurrent atrial flutter since 09/10/2024 who presented to the hospital secondary to palpitations and shortness of breath. The patient was seen by her primary chief physical therapist Dr. Bustamante where she was noted to have palpitations with associated shortness of breath. Patient has shortness of breath at rest and with exertion. He has a endorses orthopnea but denied any PND. Denied any recent weight gain, falls, cough, sputum production, fever, chills. She states her symptoms have been ongoing for at least a month. Additionally she has also noted palpitations. She denies any chest pain at rest or with exertion. She was seen by seen by Dr. Bustamante with cardiology who recommended diet admission to [facility] for consideration of cardioversion tomorrow and consideration of possible heart catheterization during admission. Labs were notable for white count of 6.4, hemoglobin was 13.7, platelet count was 206 K, sodium was one hundred thirty-eight, potassium was 4.1, creatinine was 2.0, blood glucose was 157, LFTs were unremarkable REVIEW OF SYSTEMS CONSTITUTIONAL: Denies fevers, chills, or night sweats. No unintentional weight loss reported. NEUROLOGICAL: Denies headache, amaurosis fugax, motor weakness, sensory deficit, vertigo/spinning sensation, gait abnormalities, or tremors. ENT: No hearing loss, otalgia, otorrhea, rhinitis, rhinorrhea, hoarseness, or sore throat. CARDIOVASCULAR: Denies any exertional angina, dyspnea on exertion, paroxysmal nocturnal dyspnea, palpitations, life-threatening arrhythmias, claudication. Positive for orthopnea PULMONARY: Positive for shortness of breaths. Denied any cough, sputum production GASTROINTESTINAL: Denies any type of dysphagia to either liquids or solids. Denies nausea, vomiting, pyrosis, early satiety, abdominal pain, diarrhea, constipation, or changes in stool consistency or caliber. Denies coffee-ground emesis, hematemesis, hematochezia, or melanotic stools. GENITOURINARY: Denies frequency, urgency, nocturia, hematuria or incontinence (Storage/Irritative symptoms.) Low urinary stream, straining to void, urinary intermittency or hesitancy, splitting of the voiding stream, terminal dribbling. ENDOCRINOLOGIC: Denies polyuria, polydipsia, polyphagia or heat/cold intolerances. HEMATOLOGIC: Denies thrombophilia/previous clots, or coagulopathy/bleeding d isorders. ONCOLOGIC: Denies personal history of malignancy. DERMATOLOGIC: Denies rashes or pruritus. PSYCHIATRIC: Denies any suicidal or homicidal ideation. Denies hallucinations. PAST MEDICAL HISTORY: CAD status post stent placement, diabetes mellitus type, moderate aortic valve stenosis, history of atrial arrhythmia, atrial flutter, atrial fibrillation PAST SURGICAL HISTORY: History of cardioversion, history of pacemaker placement, history of appendectomy, hysterectomy, oophorectomy, history of heart catheterization PAST SOCIAL HISTORY: Denied smoking, alcohol, drug use FAMILY HISTORY: Denied any pertinent family history Coded Allergies: No Known Drug Allergies (Verified Allergy, 06/30/13) PHYSICAL EXAM GENERAL APPEARANCE: The patient is awake, alert, and oriented, in no acute cardiopulmonary distress. NEUROLOGICAL: Cranial nerves II-XII grossly intact. Motor is 5/5 in bilateral upper and lower extremities proximal to distal. No sensory deficits. HEENT: Face is symmetric. Pupils are equal and reactive. Extraocular movements are intact. NECK: Supple. No JVD. No thyromegaly. No submental, submandibular, pre-/postauricular, occipital or supraclavicular lymphadenopathy. CHEST: Normal chest expansion. No Telemetry. LUNGS: Absence of any rales, rhonchi or any wheezing. CARDIOVASCULAR: Regular. S1 and S2 normal. No appreciable rubs, murmurs or gallops. ABDOMEN: Soft, nontender, and nondistended. There is no rebound, voluntary guarding, or rigidity. : Deferred. No Monsalve. EXTREMITIES: Non-edematous and not cyanotic. No clubbing. Good capillary refill. SKIN: No skin breakdown. Vital Sign (Last 24 Hours) 11/19/24 16:27 Temp 98.6 Pulse 81 Resp 20 B/P (MAP) 102/75 Pulse Ox 96 O2 Flow Rate 0 LABS: Laboratory: Test 11/19/24 17:41 11/19/24 17:11 Range/Units Prothrombin Time 11.8 H 9.6-11.6 SEC Prothromb Time International Ratio 1.13 0.85-1.15 Activated Partial Thromboplast Time 27.5 26.3-35.5 SEC Hemoglobin A1c 9.0 H 4.0-6.0 % Estimated Average Glucose (eAG) 212 H 70-126 mg/dL Thyroid Stimulating Hormone (TSH) 2.36 0.36-3.74 uIU/mL White Blood Count 6.4 4.8-10.8 K/uL Red Blood Count 4.54 4.00-5.50 MIL/uL Hemoglobin 13.7 12.0-16.0 g/dL Hematocrit 42.2 36-48 % Mean Corpuscular Volume 93.0 79-99 fL Mean Corpuscular Hemoglobin 30.2 27.0-33.0 pg Mean Corpuscular Hemoglobin Concent 32.5 32.0-36.0 g/dL Red Cell Distribution Width 13.0 11.0-15.5 % Platelet Count 206 130-400 K/uL Mean Platelet Volume 10.5 7.5-10.5 fL Nucleated Red Blood Cells 0.0 0.0-0.19 % Sodium Level 138 136-145 mmol/L Potassium Level 4.1 3.5-5.1 mmol/L Chloride Level 101 101-111 mmol/L Carbon Dioxide Level 30 21-32 mmol/L Blood Urea Nitrogen 24 H 7-18 mg/dL Creatinine 2.0 H 0.5-1.0 mg/dL Glomerular Filtration Rate Calc 26 >90 mL/min Random Glucose 157 H 70-105 mg/dL Total Calcium 8.9 8.5-10.1 mg/dL Total Bilirubin 0.6 0.2-1.0 mg/dL Aspartate Amino Transf (AST/SGOT) 16 10-37 U/L Alanine Aminotransferase (ALT/SGPT) 28 12-78 U/L Alkaline Phosphatase 73 50-136 U/L B-Type Natriuretic Peptide 319 H 0-100 pg/mL Total Protein 6.9 6.0-8.3 g/dL Albumin 3.8 3.5-5.0 g/dL Current Medications Medications (Trade) Dose Ordered Sig/Jose Route PRN Reason Start Time Stop Time Status Last Admin Dose Admin Amiodarone HCl (pacERONE 200MG) 200 mg DAILY PO 11/20/24 09:00 12/20/24 08:59 Apixaban (EliquIS) 5 mg BID PO 11/19/24 21:00 12/19/24 20:59 Atorvastatin Calcium (LIPItor 40MG) 40 mg HS PO 11/19/24 21:00 12/19/24 20:59 Furosemide (LASix 40MG VIAL) 40 mg Q12H IV 11/19/24 17:30 12/19/24 17:29 Insulin Human Regular (humuLIN R 100 UNIT/ML 3ML) INSULIN SLIDING SCAL... ACHS SQ 11/19/24 21:00 12/19/24 20:59 Isosorbide Mononitrate (Imdur 60mg Sr) 60 mg DAILY PO 11/20/24 09:00 12/20/24 08:59 Losartan Potassium (CozAAR 50 mg TAB) 50 mg DAILY PO 11/20/24 09:00 12/20/24 08:59 Magnesium Sulfate 50 ml @ 0 mls/hr PROTOCOL PRN IV HYPOMAGNESEMIA 11/19/24 18:30 12/19/24 18:29 Metoprolol Succinate (TopROL XL) 50 mg BID PO 11/19/24 21:00 12/19/24 20:59 Potassium Chloride 100 ml @ 100 mls/hr AD PRN IV POTASSIUM PROTOCOL 11/19/24 18:30 12/19/24 18:29 Potassium Chloride (K-Dur/Klor-Con 20meq) 20 meq AD PRN PO POTASSIUM PROTOCOL 11/19/24 18:30 12/19/24 18:29 Potassium Chloride (K-Dur/Klor-Con 20meq) 20 meq DAILY PO 11/20/24 09:00 12/20/24 08:59 Potassium Chloride (KCl 10% Elixir 20meq/15ml) 20 meq AD PRN PO POTASSIUM PROTOCOL 11/19/24 18:30 12/19/24 18:29 DIAGNOSTICS / RADIOLOGY: [ ] ASSESSMENT: 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 Patient will be monitored on telemetry. We will request consultation with Cardiology. Cardiology recommended consultation with EP. Patient will be NPO past midnight for consideration of cardioversion tomorrow -in reference to shortness of breath. Patient has been started on Lasix 40 mg q.12 hours. Closely monitor creatinine. Keep potassium greater than four and magnesium greater two. Additionally patient will also undergo a high-resolution CT for evaluation for pulmonary fibrosis in setting of amiodarone per Cardiology recommendations. We will also check for flu and COVID -echo for re-evaluation of aortic valve stenosis -obtain home medications which will be reconciled once available -TSH, A1c - patient noted to have abnormal EKG. Currently denies any chest pain. We will check troponin. -further orders per hospitalization course Plan of care was discussed with patient at bedside Advanced Care Planning Which of the following were discussed: Hospice care: Yes __ No _x_ Therapeutic options: Yes __ No __ Advance directives: Yes __ No __ Other discussions: Pt is full code Discussed with who?: patient (Patient, family or surrogates) Voluntary nature of this service was explained to the patient? Yes _x_ No __ Amount of time spent: 25 minutes MARY JO Jane MD, MD Nov 19, 2024 19:27
[2024-11-19] MEDS: furoSEMIDE 40MG VIAL IV SCH (21:28)
[2024-11-19] MEDS: APIXaban 5 MG TABLET PO SCH (21:29)
[2024-11-19] MEDS: metOPROLol sucCINATE 50 MG TAB.SR.24H PO SCH (21:29)
[2024-11-19] MEDS: atorVAStatin 40 MG TABLET PO SCH (21:29)
[2024-11-19] MEDS: INSULIN humuLIN R 100 UNIT/ML 3ML SQ SCH (21:34)
[2024-11-19] MEDS ORDERED: BENZ200C53 PO (21:49)
[2024-11-19] MEDS ORDERED: ISOS-58 PO (21:49)
[2024-11-19] MEDS ORDERED: FURO40TA5 PO (21:49)
[2024-11-19 22:06] LABS: SARS-CoV-2, RNA, NAAT NEGATIVE SARS CoV-2 (NEGATIVE)
[2024-11-19 22:13] LABS: INFLUENZA TYPE A Negative For Type A (NEGATIVE); INFLUENZA TYPE B Negative For Type B (NEGATIVE)
--- NOTE | 2024-11-19 23:45 | NUR ---
ADMIT NOTE ADMIT TO ROOM 223 VIA STRETCHER, AWAKE, ALERT, OX3, NO SOB, NO C/O PAIN AT THIS TIME, NO FAMILY AT BEDSIDE, TEACH PATIENT PLAN OF CARE , NPO POST MIDNITE AND EXPECTED OUTCOME, PATIENT VERBALIZES UNDERSTANDING VIA TEACH BACK
[2024-11-20] VITALS (8 sets, daily range): BP systolic 96–143; BP diastolic 66–91; PULSE 70–104; RESP 16–18; TEMP 97.5–98.6; O2SAT 97–98
[2024-11-20 05:08] LABS: BASOPHILS # (AUTO) 0.08 K/uL (0.00-0.20); BASOPHILS % (AUTO) 1.2 % (0.0-5.0); EOSINOPHILS # (AUTO) 0.21 K/uL (0.00-0.70); EOSINOPHILS % (AUTO) 3.3 % (0.0-8.0); IMMATURE GRANULOCYTE ABSOLUTE 0.14 K/uL (0-1); LYMPHOCYTES % (AUTO) 31.7 % (21.0-51.0); MEAN CORPUSCULAR HEMOGLOBIN 30.4 pg (27.0-33.0); MEAN CORPUSCULAR HGB CONC 33.1 g/dL (32.0-36.0); MEAN CORPUSCULAR VOLUME 91.8 fL (79-99); MONOCYTES # (AUTO) 0.7 K/uL (0.1-1.0); MONOCYTES % (AUTO) 10.9 % (3.0-13.0); NEUTROPHILS # (AUTO) 3.3 K/uL (1.8-7.7); NEUTROPHILS % (AUTO) 50.7 % (40.0-77.0); PLATELET COUNT (AUTO) 204 K/uL (130-400); RED BLOOD CELL COUNT(AUTO) 4.25 MIL/uL (4.00-5.50); RED CELL DISTRIBUTION WIDTH 13.1 % (11.0-15.5); WHITE BLOOD COUNT (AUTO) 6.4 K/uL (4.8-10.8)
[2024-11-20 05:17] LABS: POTASSIUM 3.5 mmol/L (3.5-5.1)
[2024-11-20] MEDS: PoTASSium chloRIDE 20MEQ/100ML 100 ML IV PRN (05:36)
[2024-11-20] MEDS: PoTASSium chl 10% ELIXIR 20MEQ 20 MEQ/15 ML UDCUP PO PRN (05:42)
--- NOTE | 2024-11-20 07:09 | EKG ---
[facility] Test Date: 2024-11-19 Test Time: 19:35:12 Pat Name: MARSHA BLEDSOE Department: [facility] Room: 223 1 Gender: F Quality Internship: [id number] : 1950 Requested By: MARY JO WILLIS Order Number: [id number] Reading MD: Young Jenkins Measurements Intervals [place] Rate: 95 P: 268 MN: 131 QRS: 240 QRSD: 119 T: -75 QT: 407 QTc: 512 Interpretive Statements Sinus rhythm Nonspecific IVCD with LAD Abnrm T, consider ischemia, anterolateral lds Prolonged QT interval Compared to ECG 10/30/2024 11:02:08 Ectopic atrial rhythm now present Intraventricular conduction delay now present Myocardial infarct finding now present Possible ischemia now present Prolonged QT interval now present Ventricular-paced complex(es) or rhythm no longer present Electronically Signed On 11-22-2024 18:31:47 CDT by Young Jenkins Please click the below link to view image of tracing.
[2024-11-20] MEDS ORDERED: LoSARTan 50 MG TABLET PO SCH (09:00)
--- NOTE | 2024-11-20 09:15 | HMCIMG ---
CT OF THE CHEST HIGH RESOLUTION TECHNIQUE WITHOUT CONTRAST Clinical Information: Suspected pulmonary fibrosis Comparison: None Technique: Examination is done in the supine and prone positions in inspiratory effort., slices at 1.3 mm thickness. Exam is reconstructed with high resolution bone algorithm, photographed in soft tissue, bone, and lung windows. Exam is done in the axial plane and reconstructed in sagittal and coronal planes. FINDINGS: Partially calcified well-circumscribed ovoid-shaped nodule of the right lower lobe superior segment is seen, maximum diameter 9 mm, maximum Hounsfield units density of 143, consistent with calcification. This is a benign finding. The examination shows no significant parenchymal abnormalities otherwise. Specifically, there is no interstitial disease. No mosaic pattern is identified to suggest unequal vascularity. No significant bronchial abnormalities are noted. Even though the examination is photographed in high resolution parenchymal windows, no gross mediastinal abnormalities are identified at this time. IMPRESSION: Benign HIGH-RESOLUTION CT OF THE CHEST. No evidence of pulmonary fibrosis.
--- NOTE | 2024-11-20 09:21 | EKG ---
[facility] Test Date: 2024-11-20 Test Time: 08:31:52 Pat Name: MARSHA BLEDSOE Department: [facility] Room: 223 1 Gender: Female Biomass Technician: ayanna : 1950 Requested By: KENJI DAVIS Order Number: [id number] Reading MD: Young Jenkins Measurements Intervals [place] Rate: 98 P: 124 IL: 133 QRS: 130 QRSD: 115 T: -55 QT: 405 QTc: 516 Interpretive Statements Sinus rhythm Incomplete right bundle branch block Repol abnrm suggests ischemia, diffuse leads Prolonged QT interval Compared to ECG 11/19/2024 19:35:12 Incomplete right bundle-branch block now present Early repolarization now present Ectopic atrial rhythm no longer present Intraventricular conduction delay no longer present Myocardial infarct finding no longer present Possible ischemia still present Electronically Signed On 11-22-2024 18:33:36 CDT by Young Jenkins Please click the below link to view image of tracing.
[2024-11-20] MEDS ORDERED: MIDAZOLAM HCL 1 MG/ML 2ML VIAL IVP ONE (09:30)
[2024-11-20] MEDS ORDERED: FENTanyl CITRate PF 50 MCG/1 ML 2ML VIAL IVP ONE (09:30)
--- NOTE | 2024-11-20 09:55 | PN ---
[facility] CARDIOLOGY PROGRESS NOTE Date Patient Seen: Nov 20, 2024 Time of Visit: 09:18 Interval History: This pleasant 74-year-old Latin-Finnish female with a history of type 2 diabetes mellitus, hypertension, hyperlipidemia, asthma, and atrial arrhythmias including typical atrial flutter status post ablation 02/18/2018, atrial tachycardia with 2-1 block status post DC cardioversions 04/09/2022, 12/10/2023, and 06/11/2024 developed recurrent atrial tachycardia with 2-1 block beginning 09/10/2024. In addition the patient has a history of coronary artery disease status post multivessel PTCA and stent procedure 07/01/2013 with PTCA/OLIVER to the mid RCA with a 2.5 x 24 mm Promus, PTCA/OLIVER to the mid LAD with a 2.5 x 8 mm Promus, PTCA/OLIVER to the mid to distal LAD with a 2.25 x 8 mm Promus OLIVER. She was found to have widely patent stents with nonobstructive coronary artery disease of the proximal and distal RCA and distal LCX by follow-up cardiac catheterization 08/12/2019 with LVEF of 55-60%, and a normal Lexiscan Cardiolite stress test 11/01/2023 with gated EF of 79%. In addition she has a history of sick sinus syndrome status post remote pacemaker insertion with [place] device and subsequent pacemaker generator replacement with Biotronik Edora 8 DRT-T device 11/11/[address] Alfred Enamorado. She is on fpc anticoagulation with Eliquis. She was considered for an atrial tachycardia ablation versus AV node ablation and upgrade of her dual-chamber pacemaker to a biventricular pacemaker after consultation with Dr. Jerri Gilliam at that time (September 28, 2024). The patient declined admission for direct current cardioversion. Over the last two months the patient has developed progressive dyspnea on exertion now occurring after only 5-10 yd of ambulation. She has developed orthopnea and underwent further cardiac assessment with a 2D echocardiogram at [facility] 11/02/2024 demonstrating a new cardiomyopathy with LVEF of 25-30% with segmental wall motion abnormalities in the anterior apex and apical sr. In addition she has evidence of low-flow low gradient severe aortic stenosis with a peak aortic valve gradient of 37 mm of mercury, mean aortic valve gradient of 24 mm of mercury, and an aortic valve area of 0.5 cm2 (dimensionless index 0.15). Visually the valve appeared to be moderately to severely stenotic. She has had no chest discomfort and her prior assessment of LVEF with a Lexiscan Cardiolite stress test 11/01/2023 (normal stress perfusion) was a gated ejection fraction of 79%. 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 In the office her chest x-ray findings with cardiomegaly, biatrial enlargement, minimal pulmonary vascular congestion, and basilar linear interstitial infiltrates were minor in comparison to her severe dyspnea on exertion and the possibility of amiodarone induced pulmonary fibrosis has been raised. A high- resolution CT of the chest noncontrast has been performed and results are pending. Physical Examination: GENERAL: No acute distress. HEAD: Normal with no signs of head trauma. EYES: PERRLA, EOMI, conjunctiva and sclera normal. NECK: Supple without JVD. There is no tenderness, lymphadenopathy, or masses. No thyromegaly. Diminished carotid upstrokes with delay. LUNGS: Clear breath sounds bilaterally. No wheezes, or rhonchi. HEART: Tachycardic rate. Regular rhythm. Normal S1 and decreased S2. With a 2/6 holosystolic murmur at the apex. There is a 1/6 heaving distant systolic ejection murmur at the right upper sternal border. No gallops or rubs. VASC: Peripheral pulses +2 bilaterally. EXT: No clubbing, cyanosis or edema. NEURO: Awake, alert, and oriented x3. No focal neurological deficits noted. Laboratory: Hematology Labs: Test 11/20/24 04:44 Range/Units White Blood Count 6.4 4.8-10.8 K/uL Red Blood Count 4.25 4.00-5.50 MIL/uL Hemoglobin 12.9 12.0-16.0 g/dL Hematocrit 39.0 36-48 % Mean Corpuscular Volume 91.8 79-99 fL Mean Corpuscular Hemoglobin 30.4 27.0-33.0 pg Mean Corpuscular Hemoglobin Concent 33.1 32.0-36.0 g/dL Red Cell Distribution Width 13.1 11.0-15.5 % Platelet Count 204 130-400 K/uL Mean Platelet Volume 10.7 H 7.5-10.5 fL Immature Granulocyte % (Auto) 2.2 H 0-1 % Neutrophils (%) (Auto) 50.7 40.0-77.0 % Lymphocytes (%) (Auto) 31.7 21.0-51.0 % Monocytes (%) (Auto) 10.9 3.0-13.0 % Eosinophils (%) (Auto) 3.3 0.0-8.0 % Basophils (%) (Auto) 1.2 0.0-5.0 % Neutrophils # (Auto) 3.3 1.8-7.7 K/uL Lymphocytes # (Auto) 2.0 1.0-4.8 K/uL Monocytes # (Auto) 0.7 0.1-1.0 K/uL Eosinophils # (Auto) 0.21 0.00-0.70 K/uL Basophils # (Auto) 0.08 0.00-0.20 K/uL Absolute Immature Granulocyte (auto 0.14 0-1 K/uL Nucleated Red Blood Cells 0.0 0.0-0.19 % Chemistry Labs: Test 11/20/24 05:17 11/20/24 04:44 11/19/24 17:41 11/19/24 17:11 Range/Units Whole Blood Glucose 157 H 70-110 MG/DL Sodium Level 141 136-145 mmol/L Potassium Level 3.5 3.5-5.1 mmol/L Chloride Level 105 101-111 mmol/L Carbon Dioxide Level 29 21-32 mmol/L Blood Urea Nitrogen 26 H 7-18 mg/dL Creatinine 2.0 H 0.5-1.0 mg/dL Glomerular Filtration Rate Calc 26 >90 mL/min Random Glucose 154 H 70-105 mg/dL Total Calcium 8.7 8.5-10.1 mg/dL Magnesium Level 2.00 1.80-2.40 mg/dL Hemoglobin A1c 9.0 H 4.0-6.0 % Estimated Average Glucose (eAG) 212 H 70-126 mg/dL Thyroid Stimulating Hormone (TSH) 2.36 0.36-3.74 uIU/mL Total Bilirubin 0.6 0.2-1.0 mg/dL Aspartate Amino Transf (AST/SGOT) 16 10-37 U/L Alanine Aminotransferase (ALT/SGPT) 28 12-78 U/L Alkaline Phosphatase 73 50-136 U/L Troponin I High Sensitivity 11 4-50 ng/L B-Type Natriuretic Peptide 319 H 0-100 pg/mL Total Protein 6.9 6.0-8.3 g/dL Albumin 3.8 3.5-5.0 g/dL Coagulation Labs: Test 11/19/24 17:41 Range/Units Prothrombin Time 11.8 H 9.6-11.6 SEC Prothromb Time International Ratio 1.13 0.85-1.15 Activated Partial Thromboplast Time 27.5 26.3-35.5 SEC Diagnostics / Radiology: 2D echocardiogram [facility] 11/02/2024: Severe left atrial dilatation Moderate right atrial dilatation Anteroapical and apical severe hypokinesis to akinesis with LVEF of 25-30% Grade 1 diastolic dysfunction Pacemaker lead in the right atrium Calcified aortic valve with aortic valve peak gradient of 37 mm of mercury Aortic valve mean gradient 24 mm of mercury Aortic valve area 0.5 cm2 Dimensionless index 0.15 Mitral annular calcification with mild mitral regurgitation Impression and Plan: Atrial tachycardia with 2-1 block, persistent since 09/10/2024: History of atrial tachycardia status post DC cardioversion 06/11/2024, 12/10/2023, and 04/09/2022: History of typical atrial flutter ablation 02/18/2018: Paroxysmal atrial fibrillation on chronic anticoagulation with Eliquis: -proceed with EP evaluation and consideration for atrial tachycardia ablation -proceed with DC cardioversion this morning after interrogation of her pacemaker device Sick sinus syndrome status post remote pacemaker insertion with [place] device and subsequent pacemaker generator replacement with Biotronik Edora 8 DRT-T device 11/11/[address] 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% by 2D echo 11/02/2024: 2D echo 06/30/2023 demonstrated an LVEF of 50-55%, [id number] aortic stenosis, mild mitral stenosis: Gated EF of 79% by Lexiscan Cardiolite stress test 11/01/2023: -consider ablation of atrial tachycardia given the new presumed tachycardia mediated cardiomyopathy [id number] aortic stenosis with low-flow low gradient with aortic valve peak gradient of 37 mm of mercury, mean gradient of 24 mm of mercury, aortic valve area of 0.5 cm2, aortic valve dimensionless index of 0.15, but with appearance of only moderate aortic stenosis visually: -repeat 2D echocardiogram following DC cardioversion this morning to assess both LV function, , and mild mitral stenosis Acute on chronic systolic and diastolic congestive heart failure: Modest BNP elevation only and chest x-ray findings with minor pulmonary vascular congestion only: Rule out pulmonary fibrosis from amiodarone: -proceed with CT of the chest noncontrast with high-resolution to assess for possible pulmonary fibrosis from amiodarone -continue furosemide 40 IV q.12 Coronary artery disease status post multivessel PTCA and stent procedure 07/01/2013 with PTCA/OLIVER to the mid RCA with a 2.5 x 24 mm Promus, PTCA/OLIVER to the mid LAD with a 2.5 x 8 mm Promus, PTCA/OLIVER to the mid to distal LAD with a 2.25 x 8 mm Promus OLIVER: Widely patent stents with nonobstructive coronary artery disease of the proximal and distal RCA and distal LCX by follow-up cardiac catheterization 08/12/2019 with LVEF of 55-60%: Normal Lexiscan Cardiolite stress test 11/01/2023 with gated EF of 79%: Comorbidities: Type 2 diabetes mellitus Hypertension Hyperlipidemia History of asthma KENJI DAVIS MD Nov 20, 2024 09:55
--- NOTE | 2024-11-20 11:49 | NUR ---
BIOTRONIK REP IN TO INTERROGATE DEVICE.
--- NOTE | 2024-11-20 13:11 | PN ---
[facility] PROGRESS NOTE Date of Service: Nov 20, 2024 Time of Service: 13:07 SUBJECTIVE: This pleasant 74-year-old Latin-Citizen Of [place] female with a history of type 2 diabetes mellitus, hypertension, hyperlipidemia, asthma, and atrial arrhythmias including typical atrial flutter status post ablation 02/18/2018, atrial tachycardia with 2-1 block status post DC cardioversions 04/09/2022, 12/10/2023, and 06/11/2024 developed recurrent atrial tachycardia with 2-1 block beginning 09/10/2024. In addition she has a history of sick sinus syndrome status post remote pacemaker insertion with [place] device and subsequent pacemaker generator replacement with [employer]ron[employer] Edora 8 DRT-T device 11/11/[address] Alfred Enamorado. She is on intermediate manager anticoagulation with Eliquis. Patient evaluated by fruit harvester felt to have tachycardia mediated cardiomyopathy and was admitted for further urgent management of her arrhythmia and for cardioversion as well as consideration of cardiac catheterization to define her coronary anatomy and severity of aortic stenosis. Today the patient is alert oriented x3, hemodynamically stable, awaiting cardioversion by Cardiovascular physician today. at bedside. REVIEW OF SYSTEMS CONSTITUTIONAL: Denies fevers, chills, or night sweats. No unintentional weight loss reported. NEUROLOGICAL: Denies headache, amaurosis fugax, motor weakness, sensory deficit, vertigo/spinning sensation, gait abnormalities, or tremors. ENT: No hearing loss, otalgia, otorrhea, rhinitis, rhinorrhea, hoarseness, or sore throat. CARDIOVASCULAR: Denies any exertional angina, dyspnea on exertion, paroxysmal nocturnal dyspnea, palpitations, life-threatening arrhythmias, claudication. Positive for orthopnea PULMONARY: Positive for shortness of breaths. Denied any cough, sputum production GASTROINTESTINAL: Denies any type of dysphagia to either liquids or solids. Denies nausea, vomiting, pyrosis, early satiety, abdominal pain, diarrhea, constipation, or changes in stool consistency or caliber. Denies coffee-ground emesis, hematemesis, hematochezia, or melanotic stools. GENITOURINARY: Denies frequency, urgency, nocturia, hematuria or incontinence (Storage/Irritative symptoms.) Low urinary stream, straining to void, urinary intermittency or hesitancy, splitting of the voiding stream, terminal dribbling. ENDOCRINOLOGIC: Denies polyuria, polydipsia, polyphagia or heat/cold intolerances. HEMATOLOGIC: Denies thrombophilia/previous clots, or coagulopathy/bleeding disorders. ONCOLOGIC: Denies personal history of malignancy. DERMATOLOGIC: Denies rashes or pruritus. PSYCHIATRIC: Denies any suicidal or homicidal ideation. Denies hallucinations. PHYSICAL EXAM GENERAL APPEARANCE: The patient is awake, alert, and oriented, in no acute cardiopulmonary distress. NEUROLOGICAL: Cranial nerves II-XII grossly intact. Motor is 5/5 in bilateral upper and lower extremities proximal to distal. No sensory deficits. HEENT: Face is symmetric. Pupils are equal and reactive. Extraocular movements are intact. NECK: Supple. No JVD. No thyromegaly. No submental, submandibular, pre- /postauricular, occipital or supraclavicular lymphadenopathy. CHEST: Normal chest expansion. No Telemetry. LUNGS: Absence of any rales, rhonchi or any wheezing. CARDIOVASCULAR: Regular. S1 and S2 normal. No appreciable rubs, murmurs or gallops. ABDOMEN: Soft, nontender, and nondistended. There is no rebound, voluntary guarding, or rigidity. : Deferred. No Monsalve. EXTREMITIES: Non-edematous and not cyanotic. No clubbing. Good capillary refill. SKIN: No skin breakdown. Vital Signs (last 8hr) Date Time Temp Pulse Resp B/P (MAP) Pulse Ox O2 Delivery O2 Flow Rate FiO2 11/20/24 11:30 98.6 98 18 117/91 98 Room Air 11/20/24 07:47 98.1 98 18 119/79 97 Room Air 11/20/24 07:43 98 Room Air* 0 21 LABS: Laboratory: Test 11/20/24 11:03 11/20/24 04:44 11/19/24 21:13 11/19/24 17:41 Range/Units Whole Blood Glucose 174 H 70-110 MG/DL White Blood Count 6.4 4.8-10.8 K/uL Red Blood Count 4.25 4.00-5.50 MIL/uL Hemoglobin 12.9 12.0-16.0 g/dL Hematocrit 39.0 36-48 % Mean Corpuscular Volume 91.8 79-99 fL Mean Corpuscular Hemoglobin 30.4 27.0-33.0 pg Mean Corpuscular Hemoglobin Concent 33.1 32.0-36.0 g/dL Red Cell Distribution Width 13.1 11.0-15.5 % Platelet Count 204 130-400 K/uL Mean Platelet Volume 10.7 H 7.5-10.5 fL Immature Granulocyte % (Auto) 2.2 H 0-1 % Neutrophils (%) (Auto) 50.7 40.0-77.0 % Lymphocytes (%) (Auto) 31.7 21.0-51.0 % Monocytes (%) (Auto) 10.9 3.0-13.0 % Eosinophils (%) (Auto) 3.3 0.0-8.0 % Basophils (%) (Auto) 1.2 0.0-5.0 % Neutrophils # (Auto) 3.3 1.8-7.7 K/uL Lymphocytes # (Auto) 2.0 1.0-4.8 K/uL Monocytes # (Auto) 0.7 0.1-1.0 K/uL Eosinophils # (Auto) 0.21 0.00-0.70 K/uL Basophils # (Auto) 0.08 0.00-0.20 K/uL Absolute Immature Granulocyte (auto 0.14 0-1 K/uL Nucleated Red Blood Cells 0.0 0.0-0.19 % Sodium Level 141 136-145 mmol/L Potassium Level 3.5 3.5-5.1 mmol/L Chloride Level 105 101-111 mmol/L Carbon Dioxide Level 29 21-32 mmol/L Blood Urea Nitrogen 26 H 7-18 mg/dL Creatinine 2.0 H 0.5-1.0 mg/dL Glomerular Filtration Rate Calc 26 >90 mL/min Random Glucose 154 H 70-105 mg/dL Total Calcium 8.7 8.5-10.1 mg/dL Magnesium Level 2.00 1.80-2.40 mg/dL Influenza Type A Antigen Negative For Type A NEGATIVE Influenza Type B Antigen Negative For Type B NEGATIVE SARS-CoV-2, RNA, NAAT NEGATIVE SARS CoV-2 NEGATIVE Prothrombin Time 11.8 H 9.6-11.6 SEC Prothromb Time International Ratio 1.13 0.85-1.15 Activated Partial Thromboplast Time 27.5 26.3-35.5 SEC Hemoglobin A1c 9.0 H 4.0-6.0 % Estimated Average Glucose (eAG) 212 H 70-126 mg/dL Thyroid Stimulating Hormone (TSH) 2.36 0.36-3.74 uIU/mL Test 11/19/24 17:11 Range/Units Total Bilirubin 0.6 0.2-1.0 mg/dL Aspartate Amino Transf (AST/SGOT) 16 10-37 U/L Alanine Aminotransferase (ALT/SGPT) 28 12-78 U/L Alkaline Phosphatase 73 50-136 U/L Troponin I High Sensitivity 11 4-50 ng/L B-Type Natriuretic Peptide 319 H 0-100 pg/mL Total Protein 6.9 6.0-8.3 g/dL Albumin 3.8 3.5-5.0 g/dL Current Medications Medications (Trade) Dose Ordered Sig/Jose Route PRN Reason Start Time Stop Time Status Last Admin Dose Admin Amiodarone HCl (pacERONE 200MG) 200 mg DAILY PO 11/20/24 09:00 12/20/24 08:59 Apixaban (EliquIS) 5 mg BID PO 11/19/24 21:00 12/19/24 20:59 11/19/24 21:29 5 MG Atorvastatin Calcium (LIPItor 40MG) 40 mg HS PO 11/19/24 21:00 12/19/24 20:59 11/19/24 21:29 40 MG Furosemide (LASix 40MG VIAL) 40 mg Q12H IV 11/19/24 17:30 11/20/24 00:55 DC 11/19/24 21:28 40 MG Furosemide (LASix 40MG VIAL) 40 mg Q12H IV 11/20/24 08:00 12/20/24 07:59 Insulin Human Regular (humuLIN R 100 UNIT/ML 3ML) INSULIN SLIDING SCAL... ACHS SQ 11/19/24 21:00 12/19/24 20:59 11/19/24 21:34 4 UNIT Isosorbide Mononitrate (Imdur 60mg Sr) 60 mg DAILY PO 11/20/24 09:00 12/20/24 08:59 Losartan Potassium (CozAAR 50 mg TAB) 50 mg DAILY PO 11/20/24 09:00 11/20/24 10:00 DC Magnesium Sulfate 50 ml @ 0 mls/hr PROTOCOL PRN IV HYPOMAGNESEMIA 11/19/24 18:30 12/19/24 18:29 Metoprolol Succinate (TopROL XL) 50 mg BID PO 11/19/24 21:00 12/19/24 20:59 11/19/24 21:29 50 MG Potassium Chloride 100 ml @ 100 mls/hr AD PRN IV POTASSIUM PROTOCOL 11/19/24 18:30 12/19/24 18:29 11/20/24 05:36 100 MLS/HR Potassium Chloride (K-Dur/Klor-Con 20meq) 20 meq AD PRN PO POTASSIUM PROTOCOL 11/19/24 18:30 12/19/24 18:29 Potassium Chloride (K-Dur/Klor-Con 20meq) 20 meq DAILY PO 11/20/24 09:00 12/20/24 08:59 Potassium Chloride (KCl 10% Elixir 20meq/15ml) 20 meq AD PRN PO POTASSIUM PROTOCOL 11/19/24 18:30 12/19/24 18:29 11/20/24 05:42 20 MEQ Sacubitril/ Valsartan (Entresto 24 Mg-26 Mg Tablet) 0.5 each BID PO 11/20/24 21:00 12/20/24 20:59 DIAGNOSTICS / RADIOLOGY: [ ] ASSESSMENT: 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 Follow Cardiology input recommendation terms of cardiac catheterization to d efine coronary anatomy and severity of aortic stenosis during this admission NEURO: Minimize central acting medications as possible. Fall Precautions. Well lighted room through the day and minimize interruptions through the night to prevent acute delirium. PULMONARY: Supplemental 02 as needed BiPAP as necessary, for respiratory distress Titrate Fio2 to keep Spo2 > or = 90% DuoNebs and CPT as needed IS hourly while awake for pulmonary hygiene prn Out of bed to chair as tolerated Maintain aspiration precautions at all times CARDIOVASCULAR: Follow hemodynamics. Vital signs per facility protocol GI & NUTRITION: Continue nutritional support Aspirations precautions Prokinetic agents and laxatives as needed KIDNEYS & ELECTROLYTES: Strict monitoring of intake and output Daily weights Avoid nephrotoxic agents Monitor electrolytes and replace as needed Goal urine output of 30mL/hr or 0.5mL/kg/hr Medications to be dosed according to renal function. Avoid contrast if possible ENDOCRINE: Maintain blood glucose between 100-180 at all times. Insulin sliding scale for blood glucose management Hypoglycemia and hyperglycemia protocol in place INFECTIOUS DISEASE: Trend temperature, WBC and procalcitonin level Follow cultures, deescalate antibiotics as soon as possible. Panculture if new onset fever HEMATOLOGY & COAGULATION: Monitor H&H. Keep Hgb > 7 Transfuse 1 unit of PRBC for Hgb < 7 Transfuse 1 pack of platelets of platelets < 20, 000 Watch for any signs and symptoms of bleeding SKIN: Pressure ulcer prevention per facility protocol Specialty mattress as needed ORTHO/REHAB Continue PT/OT PRN: MEDICATIONS Tylenol 650 mg po every 4 hrs for fever zofran 4 mg IV every 6 hrs for n/v Hydralazine 5 mg IV every 4 hrs systolic pressure > 160 bowel regiment: lactulose 20 gm PO BID PRN constipation Supportive measures: Continue GI and DVT prophylaxis Disposition: Cardioversion today by Cardiovascular physician. All questions answered time spent: > 35 min PRASHANT HOLCOMB MD Nov 20, 2024 13:11
--- NOTE | 2024-11-20 13:15 | NUR ---
Nutrition consult per wt loss Reviewed labs, notes, and medications. Communicated in [place], in room during visit. Pt NPO, IV fluid, elevated BUN 26, elevated Cr 2, BG 157(h) per chart review. Wt via bed scale, last BM 11/19/24, no edema, well nourished, adequate nutrition per nursing. reported there is a pending procedure. Pt reported NKFA, small portions at home, UBW 165 lbs, sees PCP every 3 months, last BM 11/19/24, upset about NPO order. Recommendations: -Provide HH diet + 60 gm cho + 6 small meals+ ensure MAX QD w/ am tray when medically feasible -Monitor PO intake -Encourage PO intake as able -Monitor BM -If no BM >3 days consider stool softener -Monitor electrolytes -Replenish electrolytes per protocol -Monitor wts -Reweigh as able -Order Vit D, vit b-12 labs to rule out deficiencies -Order lipid panel, A1C -Provide b-complex QD -Recommend Pt to follow up with PCP -Monitor goals of care RD to follow + available for consult per protocol Addendum: 11/20/24 at [address] Amended: Links added.
--- NOTE | 2024-11-20 13:20 | NUR ---
DCP Patient speaks Slovenian. Patient states lives with Eric Haynes, Spouse [phone] in a house with one step entrance and a walk in shower. States she is retired, remains independent and does not drive. States needs full assist ADL's. States has shower chair; denies other medical devices. Denies home health services, home provider care or dialysis. Requests a provider, referred to PCP for prescription and [facility]; notified Kaci. PCP - Donna Kebede MD Pharmacy - [facility]. Upon discharge, Eric Haynes, Spouse [phone]/Kayla Barajas [phone] and assist with care, as needed. Addendum: 11/20/24 at 1328 by ISH GAITAN RN CM Amended: Links added.
--- NOTE | 2024-11-20 14:02 | NUR ---
1230: MARI MEAD IN TO SEE PATIENT, UPDATE GIVEN. WILL DO CARDIOVERSION THIS AFTERNOON.
[2024-11-20 14:39] LABS: HEMOGLOBIN A1C 9.1 % (4.0-6.0)
[2024-11-20 15:48] LABS: CHOLESTEROL 127 mg/dL (<200); HDL CHOLESTEROL 57 mg/dL (35-85); LDL DIRECT 63 mg/dL (0-99); TRIGLYCERIDES 83 mg/dL (30-200)
[2024-11-20] MEDS ORDERED: proPOFol 10 MG/ML 20ML VIAL IV ONE (15:48)
[2024-11-20] MEDS ORDERED: LIDOCAINE PF 100MG/5ML (2%) SYRINGE 5ML ONE (15:48)
--- NOTE | 2024-11-20 16:50 | CONS ---
[facility] CARDIAC ELECTROPHYSIOLOGY CONSULTATION Date Patient Seen: Nov 20, 2024 Time of Visit: 16:35 Reason for Consultation: Atrial arrhythmias and acute on chronic congestive heart failure. History of Present Illness: The patient is a 74-year-old woman known to me with previous catheter ablation of type 1 counter-clockwise atrial flutter in 2017. At that time she was also found to have a left atrial tachycardia and multiple morphologies of atrial tachycardia and flutter. She has a dual-chamber pacemaker. She recently unde rwent cardioversion of an atrial tachycardia in June of 2024. She has had other cardioversions in the past. She is maintained on amiodarone. She has been experiencing increasing shortness a breath and was found to be back in atrial flutter. Interrogation of her device reveals an atrial flutter or tachycardia with an atrial rate of 200 beats per minute and 2-1 AV with sometim es variable conduction. Evaluation of her pacemaker reveals an RV pacing percentage of 86% and a 100% burden of atrial fibrillation. She has been in persistent atrial arrhythmias since early September of this year. Her ventricular response shows a maximum of 100-110 beats per minute, however it does not rule out short episodes of increased ventricular response. She also had a remote monitoring alert showing an atrial tachycardia with a slower atrial rate, approximately 180 beats per minute. Of note, when she is in sinus rhythm she has a minimal amount of RV pacing. She was scheduled for upgrade of her pacemaker to a cardiac resynchronization therapy device but apparently this was postponed because of the lack of a follow up echocardiogram. It has been r escheduled for 12/22. Meanwhile, her ejection fraction has been 25-30%, and she has [id number] aortic stenosis. It is unclear unclear exactly when that was, however she had an ejection fraction of 50-55% with [id number] aortic stenosis in June of 2023.. This was felt to be tachycardia-mediated. There is an echo pending for later today. She saw Dr. Jerri Gilliam who discussed upgrade of her pacemaker to a [employer] device and AV node ablation versus catheter ablation of her atrial tachycardias. A chest x-ray in the this admission showed some increased interstitial markings and there was a suspicion of fibrosis. Given her treatment with amiodarone a high-resolution CT was done. This showed the absence of parenchymal abnormalities and specifically no interstitial disease. She is also being considered for left and right heart catheterization since she does have history of nonobstructive coronary artery disease. Past Medical History: As above Family History: Noncontributory Social History: Denies smoking or alcohol abuse Review of Systems: Negative on a 13 point review Physical Examination: GENERAL: Patient is in no apparent distress, lying nearly supine in bed. NECK: No JVD LUNGS: Clear HEART: Regular tachycardic rhythm. There is a 1/6 systolic murmur at the left sternal border EXT: 1+ edema at the ankles Vital Signs (last 8hr) Date Time Temp Pulse Resp B/P (MAP) Pulse Ox O2 Delivery O2 Flow Rate FiO2 11/20/24 11:30 98.6 98 18 117/91 98 Room Air Laboratory: [ ] Hematology Labs: Test 11/20/24 04:44 Range/Units White Blood Count 6.4 4.8-10.8 K/uL Red Blood Count 4.25 4.00-5.50 MIL/uL Hemoglobin 12.9 12.0-16.0 g/dL Hematocrit 39.0 36-48 % Mean Corpuscular Volume 91.8 79-99 fL Mean Corpuscular Hemoglobin 30.4 27.0-33.0 pg Mean Corpuscular Hemoglobin Concent 33.1 32.0-36.0 g/dL Red Cell Distribution Width 13.1 11.0-15.5 % Platelet Count 204 130-400 K/uL Mean Platelet Volume 10.7 H 7.5-10.5 fL Immature Granulocyte % (Auto) 2.2 H 0-1 % Neutrophils (%) (Auto) 50.7 40.0-77.0 % Lymphocytes (%) (Auto) 31.7 21.0-51.0 % Monocytes (%) (Auto) 10.9 3.0-13.0 % Eosinophils (%) (Auto) 3.3 0.0-8.0 % Basophils (%) (Auto) 1.2 0.0-5.0 % Neutrophils # (Auto) 3.3 1.8-7.7 K/uL Lymphocytes # (Auto) 2.0 1.0-4.8 K/uL Monocytes # (Auto) 0.7 0.1-1.0 K/uL Eosinophils # (Auto) 0.21 0.00-0.70 K/uL Basophils # (Auto) 0.08 0.00-0.20 K/uL Absolute Immature Granulocyte (auto 0.14 0-1 K/uL Nucleated Red Blood Cells 0.0 0.0-0.19 % Chemistry Labs: Test 11/20/24 15:42 11/20/24 14:26 11/20/24 04:44 11/19/24 17:41 Range/Units Whole Blood Glucose 168 H 70-110 MG/DL Hemoglobin A1c 9.1 H 4.0-6.0 % Estimated Average Glucose (eAG) 214 H 70-126 mg/dL Triglycerides Level 83 30-200 mg/dL Cholesterol Level 127 <200 mg/dL LDL Cholesterol 63 0-99 mg/dL HDL Cholesterol 57 35-85 mg/dL Vitamin B12 Level 701 193-986 pg/mL Sodium Level 141 136-145 mmol/L Potassium Level 3.5 3.5-5.1 mmol/L Chloride Level 105 101-111 mmol/L Carbon Dioxide Level 29 21-32 mmol/L Blood Urea Nitrogen 26 H 7-18 mg/dL Creatinine 2.0 H 0.5-1.0 mg/dL Glomerular Filtration Rate Calc 26 >90 mL/min Random Glucose 154 H 70-105 mg/dL Total Calcium 8.7 8.5-10.1 mg/dL Magnesium Level 2.00 1.80-2.40 mg/dL Thyroid Stimulating Hormone (TSH) 2.36 0.36-3.74 uIU/mL Test 11/19/24 17:11 Range/Units Total Bilirubin 0.6 0.2-1.0 mg/dL Aspartate Amino Transf (AST/SGOT) 16 10-37 U/L Alanine Aminotransferase (ALT/SGPT) 28 12-78 U/L Alkaline Phosphatase 73 50-136 U/L Troponin I High Sensitivity 11 4-50 ng/L B-Type Natriuretic Peptide 319 H 0-100 pg/mL Total Protein 6.9 6.0-8.3 g/dL Albumin 3.8 3.5-5.0 g/dL Coagulation Labs: Test 11/19/24 17:41 Range/Units Prothrombin Time 11.8 H 9.6-11.6 SEC Prothromb Time International Ratio 1.13 0.85-1.15 Activated Partial Thromboplast Time 27.5 26.3-35.5 SEC Assessment: This patient has a complex atrial arrhythmia history with multiple cardioversions in the past, successful ablation of typical atrial flutter, and multiple morphologies of right and left atrial tachycardia is in flutters. She is clearly compromised from the atrial arrhythmias itself with the contribution of intermittent periods of tachycardia. Her left ventricular systolic function has deteriorated considerably. Plan: 1. I discussed the case extensively with Dr. Bustamante. 2. We will proceed with cardioversion this afternoon. 3. Continue amiodarone 4. The echocardiogram will be repeated post cardioversion to get an updated assessment of her ejection fraction, the severity of her aortic stenosis, and her left atrial volume.. 5. Probable discharge tomorrow after the echo was performed 6. Both Dr. Bustamante and I will follow this patient closely as an outpatient. 7. Regarding her ischemic workup, the timing of this will be based upon treatment of her atrial arrhythmias, particularly since anticoagulation can not be interrupted post cardioversion. 8. We will schedule the patient for catheter ablation with mapping of her right and left atria an induction of atrial tachycardia is, if she so agrees. It has already been discussed with her that this would be a complex procedure and she may require more than one procedure to eradicate or significantly decrease the burden of her atrial arrhythmias. 9. If she declines this option, then we will proceed with upgrade of her pacemaker to a cardiac resynchronization therapy pacemaker or defibrillator, depending upon a repeat assessment of her systolic function. Thank you very much for this consultation. MCKENZIE GUERRA MD Nov 20, 2024 16:50
--- NOTE | 2024-11-20 16:54 | PRN ---
Procedure Note Date of procedure: 11/20/24 Diagnosis: Persistent atrial tachycardia Procedure: Cardioversion Physician: Alfred Guerra MD The patient was brought to the day patient area in a fasting state. Anesthesia was provided by the anesthesia service. Cardioversion was performed with a synchronized shock at 120 joules resulting in sinus rhythm. The patient tolerated the procedure well. Final diagnosis: Persistent atrial tachycardia status post successful cardiovers ion ALFRED GUERRA MD Nov 20, 2024 16:54
[2024-11-20] MEDS: furoSEMIDE 40MG VIAL IV SCH (17:28)
[2024-11-20] MEDS: AMIOdarone 200 MG TABLET PO SCH (17:28)
[2024-11-20] MEDS: ISOSORBIDE MONO 60MG SR TAB PO SCH (17:28)
[2024-11-20] MEDS: PoTASSium chloRIDE 20MEQ ER 20 MEQ ERTAB PO SCH (17:29)
--- NOTE | 2024-11-20 17:40 | NUR ---
1557: DR. GUERRA IN TO DO DCCV, DEVORAH ADAMES IN FOR SEDATION. SUCCESSFUL DCCV, 120 JOULES X 1 ATTEMPT. 12 LEAD EKG DONE...PACED RHYTHM HR 70. WILL CONTINUE TO MONITOR. REFER TO SEDATION FLOW SHEET.
[2024-11-20 18:52] LABS: APPEARANCE,URINE CLEAR (CLEAR); BILIRUBIN,URINE NEGATIVE (NEGATIVE); COLOR,URINE COLORLESS (YELLOW); GLUCOSE, URINE (UA) >=1000 mg/dL (NEGATIVE); KETONES,URINE NEGATIVE (NEGATIVE); LEUKOCYTE ESTERASE ,URINE NEGATIVE Leu/uL (NEGATIVE); NITRATE,URINE NEGATIVE (NEGATIVE); OCCULT BLOOD,URINE NEGATIVE (NEGATIVE); PROTEIN,URINE NEGATIVE (NEGATIVE); UROBILINOGEN,URINE 0.2 mg/dL (0.2-1.0)
[2024-11-20 18:53] LABS: ADD UA MICROSCOPIC YES
[2024-11-20] MEDS: SACUBITRIL/VALSARTAN 1 EACH TABLET PO SCH (21:20)
[2024-11-21 00:23] VITALS: BP 107/65; PULSE 70; RESP 18; TEMP 98.7
[2024-11-21 03:21] LABS: HEMATOCRIT 38.2 % (36-48); MEAN CORPUSCULAR HEMOGLOBIN 29.9 pg (27.0-33.0); MEAN CORPUSCULAR HGB CONC 32.2 g/dL (32.0-36.0); MEAN CORPUSCULAR VOLUME 92.9 fL (79-99); RED BLOOD CELL COUNT(AUTO) 4.11 MIL/uL (4.00-5.50); RED CELL DISTRIBUTION WIDTH 12.8 % (11.0-15.5); WHITE BLOOD COUNT (AUTO) 6.2 K/uL (4.8-10.8)
[2024-11-21 03:33] LABS: ALBUMIN 3.3 g/dL (3.5-5.0); BILIRUBIN,TOTAL 0.8 mg/dL (0.2-1.0); CREATININE 2.1 mg/dL (0.5-1.0); POTASSIUM 3.8 mmol/L (3.5-5.1); TOTAL PROTEIN, SERUM 6.1 g/dL (6.0-8.3)
[2024-11-21 04:45] VITALS: BP 99/65; PULSE 71; RESP 18; TEMP 98.4
[2024-11-21] MEDS: APIXaban 5 MG TABLET PO SCH (05:32)
[2024-11-21 07:38] VITALS: BP 114/76; PULSE 70; RESP 18; TEMP 98.3
[2024-11-21 08:00] VITALS: O2SAT 93
--- NOTE | 2024-11-21 09:55 | DS ---
Discharge Summary Hospital Course Summary: This pleasant 74-year-old Latin-Maltese female with a history of type 2 diabetes mellitus, hypertension, hyperlipidemia, asthma, and atrial arrhythmias including typical atrial flutter status post ablation 02/18/2018, atrial tachycardia with 2-1 block status post DC cardioversions 04/09/2022, 12/10/2023, and 06/11/2024 developed recurrent atrial tachycardia with 2-1 block beginning 09/10/2024. In addition she has a history of sick sinus syndrome status post remote pacemaker insertion with [place] device and subsequent pacemaker generator replacement with Biotronik Edora 8 DRT-T device 11/11/[address] Alfred Enamorado. She is on mcc anticoagulation with Eliquis. Patient evaluated by industrial maintenance technician felt to have tachycardia mediated cardiomyopathy and was admitted for further urgent management of her arrhythmia and for cardioversion as well as consideration of cardiac catheterization to define her coronary anatomy and severity of aortic stenosis. During the course of the hospitalization CT scan of the chest was done, unremarkable. Patient underwent successful cardioversion 11/20/2024, tolerated well. Today patient is alert oriented x3, hemodynamically stable, no chest pain, no shortness shortness for breath, no nausea, no vomiting, no abdominal discomfort, cleared from Cardiology standpoint to be discharged home. Ply Splicer(s): Cardiology and electrophysiology Procedure(s): Date of procedure: 11/20/24 Diagnosis: Persistent atrial tachycardia Procedure: Cardioversion Physician: Alfred Enamorado MD The patient was brought to the day patient area in a fasting state. Anesthesia was provided by the anesthesia service. Cardioversion was performed with a synchronized shock at 120 joules resulting in sinus rhythm. The patient tolerated the procedure well. 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 Patient and agreed and understood the information provided. Home Medications: Reported Medications Furosemide (Furosemide) 40 Mg Tablet, 40 MG PO AM, TAB 11/19/24 Isosorbide Mononitrate (Isosorbide Mononitrate) 20 Mg Tablet, 120 MG PO AM, TAB 11/19/24 Benzonatate (Benzonatate) 200 Mg Capsule, 200 MG PO TID, CAP 11/19/24 Linagliptin (Tradjenta) 5 Mg Tablet, 1 TAB PO DAILY for 30 Days, #30 TAB 0 Refills 11/19/24 Folic Acid/Vitamin B Comp W-C (Kayce-Pradeep Tablet) 0.8 Mg Tablet, 1 TAB PO DAILY for 30 Days, #30 TAB 0 Refills 11/19/24 Empagliflozin (Jardiance) 10 Mg Tablet, 10 MG PO AM, TAB 10/30/24 Nitroglycerin (Nitroglycerin) 0.4 Mg Tab.subl, 0.4 MG SL AD PRN for CHEST PAIN, TAB.SL 10/30/24 Metoprolol Succinate (Metoprolol Succinate) 50 Mg Tab.er.24h, 25 MG PO BID, TAB 10/30/24 Folic Acid/Vitamin B Comp W-C (Kayce-Pradeep Tablet) 0.8 Mg Tablet, 0.8 MG PO DAILY, TAB 10/30/24 Apixaban (Eliquis) 5 Mg Tablet, 5 MG PO BID, TAB 10/30/24 Linagliptin (Tradjenta) 5 Mg Tablet, 5 MG PO DAILY, TAB 06/10/24 Omeprazole (Omeprazole) 40 Mg Capsule.dr, 40 MG PO DAILY, CAP 06/10/24 Amiodarone HCl (Amiodarone HCl) 200 Mg Tablet, 200 MG PO AM, TAB 10/28/22 Metformin HCl (Metformin HCl) 500 Mg Tablet, 500 MG PO AM, TAB 04/06/22 Atorvastatin Calcium (LIPITOR) 40 Mg Tablet, 40 MG PO HS, TAB 04/06/22 Time spent arranging discharge: 31-60 minutes PRASHANT HOLCOMB MD Nov 21, 2024 09:55
[2024-11-21] MEDS ORDERED: METO50TA9 PO (10:00)
[2024-11-21] MEDS ORDERED: ISOS60TA77 PO (10:00)
[2024-11-21] MEDS ORDERED: FURO40TA5 PO (10:00)
[2024-11-21] MEDS ORDERED: SACU1TAB PO (10:00)
--- NOTE | 2024-11-21 11:25 | NUR ---
GIVEN DISMISSAL INSTRUCTIONS, VERBALIZED UNDERSTANDING. REMOVED SALINE LOCK FROM LEFT ARM, IV SITE WITHOUT REDNESS NOTED. REMOVED TELE PACK. TAKEN TO PRIVATE CAR ALONG WITH PERSONAL BELONGINGS VIA WHEELCHAIR BY SARA STUDENT NURSE.
--- NOTE | 2024-11-21 12:34 | HMCSR ---
APPROVED REPORT EXAM: Two-dimensional and M-mode echocardiogram with Doppler and color Doppler. INDICATION ICD: Assess aortic stenosis 2D Dimensions RVDd4.0 cmLVEF(%)42.9 (>50%)LVEF(%, simp.)49 % IVSd1.0 (0.7-1.1cm)FS(%)21 %LA ESV INDEX (BP)54.46 mL/m2 LVDd5.0 (3.8-5.6cm)LA (2D)5.6 (1.6-4.0cm) PWd0.9 (0.7-1.1cm)Ao Root(2D)2.9 (2.0-3.7cm) IVSs1.1 cmLVOT diam2.1 (1.8-2.4cm) LVDs3.9 (2.5-4.0cm)IVC diam2.2 cm PWs1.3 cm Deformation Strain Apical 4-7.0 % Apical 2-7.0 % Apical 3-8.0 % Global Strain-8.0 % M-Mode Dimensions EPSS1.0 cm LA (MM)5.7 (1.6-4.0cm) Ao Root(MM)2.8 (2.0-3.7cm) Aortic Valve AoV Vmax4.1 m/Pamela Peak GR81.0 mmHgLVOT Vmax0.7 m/s AoV VTI1.0 mAo Mean GR53.0 mmHgLVOT VTI0.16 m GONSALO (VMAX)0.6 cm2Al P1/2T603 msAVA (VTI) 0.6 cm2 Mitral Valve MV E Muri269.0 cm/sDECEL Lbfh796 msMV Peak GR8 mmHg MV A Vmax78.6 cm/sP 1/2 T93 msMV Mean GR4 mmHg E/A ratio1.5MVA (PHT)2.4 cm2 TDI E/E' Mktfku39.3E/E' Evvljxi01.3 Medial E' Peak V3.00 cm/sLateral E' Peak V3.00 cm/s Pulmonary Valve PV Vmax0.7 m/s Tricuspid Valve TR Vmax2.4 m/sRAP (EST) 8 hzFgQSMA22.8 mmHg TR Peak GR23.8 mmHg Left Ventricle The left ventricle is normal size. Severely reduced GLS -8.0%. Apicalo, apical septal, apical anterio r, and apical lateral hypokinesia. There is normal left ventricular wall thickness. LVEF is 45-50%. S tage II, diastolic dysfunction. E/A flow is fused. Right Ventricle The right ventricle is normal size. The right ventricular systolic function is mildly reduced Atria The left atrium is severely dilated.LASVI 54mL/m. The right atrium is moderately dilated. Aortic Valve Aortic valve is trileaflet heavily thickened and calcified with decreased opening. Mild aortic regurg itation is present. There is severe aortic valvular stenosis with pk gradient of 81mmHg and mean grad ient of 53mmHg. Mitral Valve There is moderate mitral annular calcification. Anterior mitral valve leaflet is prolapsed. The meagan l valve is mildly thickened. There is mild mitral valve regurgitation noted. There is mild mitral asya ve stenosis with mean gradient of 4mmHg. Tricuspid Valve The tricuspid valve is normal in structure. There is trace of tricuspid valve regurgitation noted. Pulmonic Valve The pulmonary valve is normal in structure. There is no pulmonic valvular regurgitation. Great Vessels The aortic root is normal in size. IVC is dilated and collapses >50% with inspiration. Pericardium There is trivial pericardial effusion. Other Information Quality : Adequate Conclusion LVEF is 45-50%. Severely reduced GLS -8.0%. Apical, apical septal, apical anterior, and apical lateral hypokinesia. Stage II, diastolic dysfunction. E/A flow is fused. The left atrium is severely dilated.LASVI 54mL/m. Mild aortic regurgitation is present. There is mild mitral valve regurgitation noted. There is mild mitral valve stenosis with mean gradient of 4mmHg. There is severe aortic valvular stenosis with pk gradient of 81mmHg and mean gradient of 53mmHg.
--- NOTE | 2024-11-21 17:23 | EKG ---
[facility] Test Date: 2024-11-20 Test Time: 16:06:24 Pat Name: MARSHA BLEDSOE Department: [facility] Room: 223 1 Gender: F Chief Deputy Coroner: GENESIS : 1950 Requested By: MCKENZIE GUERRA Order Number: [id number] Reading MD: Young Jenkins Measurements Intervals [place] Rate: 70 P: 28 IA: 296 QRS: -27 QRSD: 117 T: -62 QT: 462 QTc: 498 Interpretive Statements Sinus rhythm Prolonged IA interval Nonspecific intraventricular conduction delay Abnormal T, consider ischemia, diffuse leads Compared to ECG 11/20/2024 08:31:52 First degree AV block now present Intraventricular conduction delay now present T-wave abnormality now present Incomplete right bundle-branch block no longer present Early repolarization no longer present Prolonged QT interval no longer present Possible ischemia still present Electronically Signed On 11-22-2024 18:33:56 CDT by Young Jenkins Please click the below link to view image of tracing.
== END 2024-11-21 11:28 | disposition home or self-care (01) | DRG 291 ==
LOC: EDH 16:18 → EDHIP 16:19 → 2DH 23:01
PROVIDERS: ADMIT Internal Medicine; ATTEND Internal Medicine
PROC: 5A2204Z Restoration of Cardiac Rhythm, Single (ICD-10-PCS; principal; 2024-11-20)
DX: I13.0 Hypertensive heart and chronic kidney disease with heart failure and stage 1 through stage 4 chronic kidney disease, or unspecified chronic kidney disease (principal); I50.43 Acute on chronic combined systolic (congestive) and diastolic (congestive) heart failure; I48.4 Atypical atrial flutter; N18.4 Chronic kidney disease, stage 4 (severe); I48.19 Other persistent atrial fibrillation; I47.19 Other supraventricular tachycardia; I95.1 Orthostatic hypotension; I49.5 Sick sinus syndrome; Z20.822 Contact with and (suspected) exposure to COVID-19; J45.909 Unspecified asthma, uncomplicated; I42.9 Cardiomyopathy, unspecified; E11.22 Type 2 diabetes mellitus with diabetic chronic kidney disease; I25.10 Atherosclerotic heart disease of native coronary artery without angina pectoris; I08.0 Rheumatic disorders of both mitral and aortic valves; E78.5 Hyperlipidemia, unspecified; Z90.710 Acquired absence of both cervix and uterus; Z79.899 Other long term (current) drug therapy; Z95.5 Presence of coronary angioplasty implant and graft; Z95.0 Presence of cardiac pacemaker; Z90.49 Acquired absence of other specified parts of digestive tract; Z79.01 Long term (current) use of anticoagulants; Z99.81 Dependence on supplemental oxygen
CPT/HCPCS: 36415; 71250; 80048; 80053; 80061; 81001; 82306; 82570; 82607; 82948; 83036; 83735; 83880; 84443; 84484; 85025; 85027; 85610; 85730; 87635; 87804; 92960; 93005; 93306; 93356; G0378; J1815; J1940; J2003; J2250; J2704; J3480; J3490

== ENCOUNTER 2024-12-22 07:03 | Day surgery (SDC) | payer OTHER, MEDICARE ==
[2024-12-18 10:40] LABS: BASOPHILS # (AUTO) 0.06 K/uL (0.00-0.20); BASOPHILS % (AUTO) 0.8 % (0.0-5.0); EOSINOPHILS # (AUTO) 0.17 K/uL (0.00-0.70); EOSINOPHILS % (AUTO) 2.2 % (0.0-8.0); HEMATOCRIT 44.5 % (36-48); IMMATURE GRANULOCYTE ABSOLUTE 0.12 K/uL (0-1); LYMPHOCYTES # (AUTO) 1.4 K/uL (1.0-4.8); LYMPHOCYTES % (AUTO) 17.7 % (21.0-51.0); MEAN CORPUSCULAR HGB CONC 32.6 g/dL (32.0-36.0); MEAN CORPUSCULAR VOLUME 92.1 fL (79-99); MONOCYTES # (AUTO) 0.5 K/uL (0.1-1.0); MONOCYTES % (AUTO) 6.7 % (3.0-13.0); NEUTROPHILS # (AUTO) 5.5 K/uL (1.8-7.7); NEUTROPHILS % (AUTO) 71.1 % (40.0-77.0); PLATELET COUNT (AUTO) 157 K/uL (130-400); RED BLOOD CELL COUNT(AUTO) 4.83 MIL/uL (4.00-5.50); RED CELL DISTRIBUTION WIDTH 13.1 % (11.0-15.5); WHITE BLOOD COUNT (AUTO) 7.8 K/uL (4.8-10.8)
[2024-12-18 10:51] LABS: CREATININE 2.2 mg/dL (0.5-1.0); POTASSIUM 4.2 mmol/L (3.5-5.1)
[2024-12-18 10:53] LABS: INR 1.14 (0.85-1.15); PROTHROMBIN TIME 11.9 SEC (9.6-11.6)
[2024-12-18 10:55] LABS: PARTIAL THROMBOPLASTIN TIME 30.5 SEC (26.3-35.5)
[2024-12-18 10:57] VITALS: BP 114/70; PULSE 80; RESP 18; TEMP 97.3
--- NOTE | 2024-12-18 11:07 | EKG ---
[facility] Test Date: 2024-12-18 Test Time: 10:40:30 Pat Name: MARSHA BLEDSOE Department: [facility] Room: Gender: F Pathology Laboratory Technologist: [id number] : 1950 Requested By: MCKENZIE GUERRA Order Number: [id number] Reading MD: Brittany Sanches Measurements Intervals [place] Rate: 70 P: 4 ME: 248 QRS: -49 QRSD: 106 T: 14 QT: 464 QTc: 501 Interpretive Statements Atrial-paced rhythm with prolonged AV conduction Left axis deviation ST & T wave abnormality, consider anterolateral ischemia Compared to ECG 11/20/2024 16:06:24 Left-axis deviation now present ST (T wave) deviation now present Sinus rhythm no longer present First degree AV block no longer present Intraventricular conduction delay no longer present T-wave abnormality no longer present Possible ischemia still present Electronically Signed On 12-19-2024 14:33:46 CDT by Brittayn Sanches Please click the below link to view image of tracing.
--- NOTE | 2024-12-18 15:01 | NUR ---
REPORT REPORTED TO DR GUERRA PT HAD FALL APPROX 3 DAYS AGO D/T DIZZINESS. PT DENIED LOSING CONSCIOUSNESS OR HITTING HEAD. MINOR BRUISES TO LEFT ARM AND LEFT HIP.
[2024-12-22] VITALS (9 sets, daily range): BP systolic 108–138; BP diastolic 55–77; PULSE 60–74; RESP 15–18; TEMP 97–97.3
[~2024-12-22] VITALS: Ht 160 cm; Wt 68.9 kg
[~2024-12-22 07:03] MED LIST changes: +FLUT1AER IH; -FOLI0.8T22 PO; +FURO40TA5 PO; +ISOS60TA77 PO; -METO-391 PO; +METO50TA9 PO; +SACU1TAB PO; -linAGLIPtin 5 MG TABLET PO ONE
[2024-12-22] MEDS ORDERED: SODIUM BICARB 50MEQ 50ML VIAL 50 ML ONE (10:09)
[2024-12-22] MEDS ORDERED: LIDOCAINE HCL 400MG/20ML VIAL ONE (10:09)
[2024-12-22] MEDS ORDERED: ceFAZolin SODIUM 1 GM VIAL ONE (10:10)
[2024-12-22] MEDS ORDERED: HEParin 10,000 UNIT/10ML (1,000 UNIT/ML) VIAL ONE (10:10)
[2024-12-22] MEDS ORDERED: HEParin-NS 1,000 UNIT/500 ML 500 ML IV ONE (10:43)
[2024-12-22] MEDS ORDERED: BUPIvacaine/PF 0.25% 30ML VIAL IJ ONE (10:47)
[2024-12-22] MEDS ORDERED: LIDOCAINE HCL 1% MDV 50ML VIAL ONE (10:47)
[2024-12-22] MEDS ORDERED: MIDAZOLAM HCL 1 MG/ML 2ML VIAL ONE ×3 (10:53→12:44)
[2024-12-22] MEDS ORDERED: FENTanyl CITRate PF 50 MCG/1 ML 2ML VIAL ONE ×2 (10:53→12:51)
[2024-12-22] MEDS ORDERED: IOHEXOL-350 50ML VIAL IV ONE (11:27)
[2024-12-22] MEDS ORDERED: BACITRACIN 1 EACH PACKET TP ONE (13:32)
[2024-12-22] MEDS ORDERED: TRAM50TA4 PO (14:12)
[2024-12-22] MEDS ORDERED: acetaMINOPHEN WITH coDEINE 1 TAB TAB PO PRN ×2 (14:30→15:00)
[2024-12-22] MEDS ORDERED: acetaMINOPHEN 500 MG TABLET PO PRN (14:30)
--- NOTE | 2024-12-22 16:54 | HMCIMG ---
PORTABLE CHEST RADIOGRAPH INDICATION: s/p MEDIA PLANNER / BUYER upgrade COMPARISON: 11/20/2024 CT chest FINDINGS: slide fastener repairer leads overlie the field of view. Left sided dual chamber pacer and continuous leads remain in customary position. Heart size is normal. Mild calcific plaque is present along the aortic arch sr. The pulmonary vascularity and elo appear normal. No abnormal pulmonary parenchymal opacity or consolidation identified. No significant pleural effusion noted. No pneumothorax detected. IMPRESSION: No radiographic evidence for any acute cardiopulmonary process.
--- NOTE | 2024-12-22 17:50 | NUR ---
RE: CXR REPORTED CXR RESULTS TO DR GUERRA, NO NEW ORDERS. OK TO SEND HOME.
== END 2024-12-22 18:30 | disposition home or self-care (01) ==
LOC: DAH 07:03
PROVIDERS: ATTEND Internal Medicine Cardiovascular Disease
DX: I48.19 Other persistent atrial fibrillation (principal); I48.4 Atypical atrial flutter; I50.22 Chronic systolic (congestive) heart failure; E11.9 Type 2 diabetes mellitus without complications; I25.10 Atherosclerotic heart disease of native coronary artery without angina pectoris; I49.5 Sick sinus syndrome; E78.5 Hyperlipidemia, unspecified; J45.909 Unspecified asthma, uncomplicated; I42.0 Dilated cardiomyopathy; I35.0 Nonrheumatic aortic (valve) stenosis; I47.19 Other supraventricular tachycardia; Z90.49 Acquired absence of other specified parts of digestive tract; Z90.710 Acquired absence of both cervix and uterus; Z79.84 Long term (current) use of oral hypoglycemic drugs; Z79.899 Other long term (current) drug therapy
CPT/HCPCS: 80048; 85025; 85610; 85730; 36415; 93005; 33229; 33225; 82948 ×2; 71045; C1769; C1894 ×2; C1900; C2621; A4649 ×2; J3010 ×2; J0690; J3490 ×3; J0665; J1644 ×2; J2250 ×3; Q9967; A4215; A4222; A4221; A4663; A4216; A4606; A4223 ×3; 99156; 99157

== ENCOUNTER 2025-02-10 05:55 | Day surgery (SDC) | payer OTHER, MEDICAID ==
[2025-02-08 11:44] VITALS: BP 121/63; PULSE 59; RESP 18; TEMP 97.3
[2025-02-08 11:47] LABS: BASOPHILS # (AUTO) 0.08 K/uL (0.00-0.20); BASOPHILS % (AUTO) 1.2 % (0.0-5.0); EOSINOPHILS # (AUTO) 0.27 K/uL (0.00-0.70); EOSINOPHILS % (AUTO) 4.1 % (0.0-8.0); HEMATOCRIT 39.3 % (36-48); IMMATURE GRANULOCYTE ABSOLUTE 0.14 K/uL (0-1); LYMPHOCYTES # (AUTO) 1.3 K/uL (1.0-4.8); LYMPHOCYTES % (AUTO) 19.5 % (21.0-51.0); MEAN CORPUSCULAR HEMOGLOBIN 30.5 pg (27.0-33.0); MEAN CORPUSCULAR HGB CONC 33.3 g/dL (32.0-36.0); MEAN CORPUSCULAR VOLUME 91.6 fL (79-99); MONOCYTES # (AUTO) 0.5 K/uL (0.1-1.0); MONOCYTES % (AUTO) 6.9 % (3.0-13.0); NEUTROPHILS # (AUTO) 4.3 K/uL (1.8-7.7); NEUTROPHILS % (AUTO) 66.2 % (40.0-77.0); PLATELET COUNT (AUTO) 164 K/uL (130-400); RED BLOOD CELL COUNT(AUTO) 4.29 MIL/uL (4.00-5.50); RED CELL DISTRIBUTION WIDTH 14.8 % (11.0-15.5); WHITE BLOOD COUNT (AUTO) 6.6 K/uL (4.8-10.8)
[2025-02-08 11:50] LABS: APPEARANCE,URINE CLEAR (CLEAR); BILIRUBIN,URINE NEGATIVE (NEGATIVE); COLOR,URINE LIGHT-YELLOW (YELLOW); GLUCOSE, URINE (UA) TRACE mg/dL (NEGATIVE); KETONES,URINE NEGATIVE (NEGATIVE); LEUKOCYTE ESTERASE ,URINE 75 Leu/uL (NEGATIVE); NITRATE,URINE NEGATIVE (NEGATIVE); OCCULT BLOOD,URINE NEGATIVE (NEGATIVE); PH,URINE 5.5 (5.0-8.0); PROTEIN,URINE NEGATIVE (NEGATIVE); UROBILINOGEN,URINE 0.2 mg/dL (0.2-1.0)
[2025-02-08 11:52] LABS: ADD UA MICROSCOPIC YES
--- NOTE | 2025-02-08 11:52 | EKG ---
[facility] Test Date: 2025-02-08 Test Time: 11:36:19 Pat Name: MARSHA BLEDSOE Department: [facility] Room: Gender: F Chief Solution Architect: [id number] : 1950 Requested By: KENJI DAVIS Order Number: [id number] Reading MD: Young Jenkins Measurements Intervals [place] Rate: 60 P: 0 MN: 90 QRS: -31 QRSD: 109 T: 90 QT: 461 QTc: 461 Interpretive Statements Atrial-paced complexes Left axis deviation Abnrm T, consider ischemia, anterolateral lds ST elevation, consider inferior injury Compared to ECG 12/18/2024 10:40:30 Myocardial infarct finding now present Ventricular-paced complex(es) or rhythm no longer present Possible ischemia still present ST (T wave) deviation still present Electronically Signed On 02-08-2025 22:17:18 CDT by Young Jenkins Please click the below link to view image of tracing.
[2025-02-08 11:54] LABS: BACTERIA,URINE RARE /HPF (None Seen); RBC,URINE 0-1 /HPF (0-1); SQUAMOUS EPITHELIAL CELL,UR RARE /HPF (0-2)
[2025-02-08 11:54] LABS: CREATININE 2.3 mg/dL (0.5-1.0); POTASSIUM 4.6 mmol/L (3.5-5.1)
[2025-02-08 12:06] LABS: B-TYPE NATRIURETIC PEPTIDE 141 pg/mL (0-100)
[2025-02-08 12:11] LABS: INR 1.03 (0.85-1.15); PROTHROMBIN TIME 10.9 SEC (9.6-11.6)
[2025-02-08 12:12] LABS: PARTIAL THROMBOPLASTIN TIME 29.8 SEC (26.3-35.5)
--- NOTE | 2025-02-09 09:07 | HMCIMG ---
CHEST 1VW REASON: PRE OP COMPARISON: None. FINDINGS: Single view of the chest was obtained. Lungs are clear. Heart size is normal. There is no pulmonary vascular congestion. Mediastinum and bony thorax appear unremarkable. There is a left-sided bipolar pacemaker in place. IMPRESSION: 1. No acute process seen in the chest and no interval change.
--- NOTE | 2025-02-09 13:15 | NUR ---
report dr poon reviewed bmp and urine. received orders to have pt hold furosemide starting today, adm ns 150ml/hr iv 3 hrs prior to procedure and repeat bmp post 3 hrs of hydration. pts spouse and daughter notified of above. understanding voiced.
[2025-02-10] VITALS (9 sets, daily range): BP systolic 107–142; BP diastolic 51–81; PULSE 60–65; RESP 13–18; TEMP 97.6
[~2025-02-10] VITALS: Ht 160 cm; Wt 70.9 kg
[~2025-02-10 05:55] MED LIST changes: -AMIO200T68 PO; +AMIO200T73 PO; -EMPA10TA PO; +FOLI1TAB85 PO; +METO-391 PO; -METO50TA9 PO
[2025-02-10] MEDS: 0.9%NACL 1000ML 1,000 ML IV SCH (06:39)
[2025-02-10 10:00] LABS: CREATININE 1.8 mg/dL (0.5-1.0); POTASSIUM 4.5 mmol/L (3.5-5.1)
--- NOTE | 2025-02-10 10:27 | NUR ---
abnormal lab: helene bynum from labor training manager to notify dr. poon creatine 1.8 after 3 hours hydration. will return call.
[2025-02-10] MEDS ORDERED: LIDOCAINE HCL 400MG/20ML VIAL ONE (13:27)
[2025-02-10] MEDS ORDERED: HEParin 10,000 UNIT/10ML (1,000 UNIT/ML) VIAL ONE (13:27)
[2025-02-10] MEDS ORDERED: HEParin-NS 1,000 UNIT/500 ML 1,000 ML IV ONE (13:27)
[2025-02-10] MEDS ORDERED: IOHEXOL-350 50ML VIAL IV ONE (13:28)
[2025-02-10] MEDS ORDERED: NITROGLYCERIN 50MG VIAL ONE (13:28)
[2025-02-10] MEDS ORDERED: IOHEXOL 350 MG/ML 100ML INFUS..BTL IV ONE (13:28)
[2025-02-10] MEDS ORDERED: HEParin-NS 1,000 UNIT/500 ML 500 ML IV ONE (13:31)
[2025-02-10] MEDS ORDERED: MIDAZOLAM HCL 1 MG/ML 2ML VIAL ONE (14:07)
[2025-02-10] MEDS ORDERED: FENTanyl CITRate PF 50 MCG/1 ML 2ML VIAL ONE (14:07)
[2025-02-10] MEDS ORDERED: BIVALIRUDIN 250 MG/VIAL IV ONE (14:12)
[2025-02-10] MEDS ORDERED: GLUCAGON 1MG KIT 1 MG ML IM PRN (16:00)
[2025-02-10] MEDS ORDERED: DEXTROSE 50%-WATER 50 ML DISP.SYRIN IV PRN (16:00)
[2025-02-10] MEDS ORDERED: INSULIN humuLIN R 100 UNIT/ML 3ML SQ SCH (16:30)
[2025-02-10] MEDS ORDERED: 0.9%NACL 1000ML 1,000 ML IV SCH (16:30)
--- NOTE | 2025-02-10 16:43 | PRN ---
DATE OF PROCEDURE: PROCEDURE PERFORMED: RIGHT AND LEFT HEART CATHETERIZATION CANDY COUNTER CLERK: Kenji Davis MD, [facility] INDICATION: Severe symptomatic aortic stenosis with aortic valve area of 0.6 cm2 by 2D echocardiogram 11/21/2024, peak aortic valve gradient of 81 mm of mercury and mean aortic valve gradient of 53 mm of mercury. Nonischemic cardiomyopathy with LVEF of 45-50% and stage II diastolic dysfunction by 2D echo 11/21/2024. Dyspnea on exertion at a proximally 20-30 yd of ambulation. PROCEDURE NOTE: After informed consent was obtained the patient was prepped and draped in the usual sterile fashion. A 6 Tunisian 45 cm arterial sheath was inserted in the right femoral artery using a micropuncture technique with ultrasound guidance. A seven Tunisian venous sheath was inserted into the right femoral vein also using micropuncture technique and ultrasound guidance. This was performed after fluoroscopic identification of bony landmarks to facilitate a more accurate puncture of the right common femoral artery. The arterial sheath was aspirated and flushed. A seven Tunisian S tipped VIP [place] catheter was advanced using balloon floatation to the right heart with pressure measurements and saturations in the pulmonary artery position. Cardiac output determinations were made using both Alicia and thermodilution. A 5 Tunisian pigtail catheter was then advanced over a J-tipped guidewire to the ascending aorta, and simultaneous identical pressure measurements were obtained in the ascending aorta and descending thoracic aorta. The five Tunisian pigtail catheter was advanced to the LV using a straight wire with moderate difficulty. Simultaneous LV and descending thoracic aorta pressure measurements were obtained. No left ventriculogram was then performed given the presence of significant chronic renal insufficiency with serum creatinine of 2.0. Simultaneous measurement of LVEDP and wedge were also obtained. Valve area calculations were performed using both Alicia and thermodilution cardiac output methods. A pullback procedure was then performed, and this catheter was removed over a J-tipped guidewire. A 6F JL-4 was then advanced to the ascending aorta over a J-tipped guidewire, was aspirated and flushed, and was used for selective left coronary angiograms in multiple obliquities. A JR-4 was advanced in a similar fashion to the ascending aorta over a J-tipped guidewire and was used for selective right coronary angiograms in multiple obliquities with findings as outlined below. A right common femoral angiogram was performed to assess suitability for Perclose suture closure and the Perclose device was deployed in standard fashion. Perclose suture closure was successful without bleeding or hematoma. The patient tolerated the procedure well and was returned to the holding area in stable condition. Vascade venous closure was successful without bleeding or hematoma. FINDINGS: RIGHT HEART CATHETERIZATION: RA pressure was 8 mm of mercury on the A-wave and 3 mm of mercury on the V-wave. Mean RA pressure was 4 mm of mercury. RV pressure was 30/11 mm of mercury. PA pressure was 30/17 mm of mercury with a mean PA pressure of 22 mm of mercury. Pulmonary capillary wedge pressure was 17 mm of mercury on the A-wave, 17 mm of mercury on the V-wave, and the mean pulmonary capillary wedge pressure was 14 mm of mercury. Cardiac output and index using Alicia were 2.79 L/min and 1.61 L/min per meter squared. Cardiac output and index using thermodilution were 2.90 L/min and 1.67 L/min per meter squared LEFT HEART HEMODYNAMICS: Simultaneous LV and descending thoracic aortic gradients: Peak to peak aortic valve gradient 38 mm of mercury Mean aortic valve gradient 34 mm of mercury Aortic valve area using Ailcia cardiac output was 0.6 cm2 Aortic valve area using thermodilution cardiac output was 0.5 cm2 LEFT VENTRICULOGRAM: No left ventriculogram was performed. CORONARY ANGIOGRAM: LEFT MAIN: The left main coronary was normal. LEFT ANTERIOR DESCENDING: The LAD had a 40% proximal stenosis, a widely patent mid LAD stent, and widely patent mid to distal LAD stent from 07/01/2013, and the distal LAD was tortuous and small. The 1st diagonal branch and 2nd diagonal branches were normal. LEFT CIRCUMFLEX: The left circumflex was nondominant and had a 75% distal stenosis prior to terminating as a small OM3. The OM1 and OM2 had 60% proximal stenoses. RAMUS INTERMEDIATE BRANCH: There was no ramus intermediate branch. RIGHT CORONARY ARTERY: The right coronary artery had a 60% proximal stenosis, 40% stenosis prior to the mid RCA stent, a widely patent stent from 07/01/2013, and a 40% distal RCA stenosis. The PDA and posterolateral branches were normal. IMPRESSION: 1. Severe symptomatic aortic stenosis with dyspnea on exertion at 20-30 yd of ambulation, aortic valve area of 0.5-0.6 cm2 consistent with 2D echo aortic valve area also 0.6 cm2. Low-flow low gradient severe with peak to peak aort ic valve gradient of 38 mm of mercury, mean aortic valve gradient of 34 mm of mercury. 2. Low cardiac output state with cardiac index of 1.6 L/min per meter squared by Alicia and 1.7 L/min per meter squared by thermodilution. 3. Nonischemic cardiomyopathy with LVEF of 45-50% and stage II diastolic dysfunction by 2D echo 11/21/2024. 4. Three of three stents widely patent from 07/01/2013 including a widely patent mid LAD stent, widely patent mid to distal LAD stent, and widely patent mid RCA stent. 5. Stage IV chronic renal insufficiency with EGFR of 29 mL per minute. RECOMMENDATION: Proceed with evaluation for TAVR. COMPLICATIONS OF PROCEDURE: None, the patient tolerated the procedure well and was returned to her room in stable condition. HEMOSTASIS: Perclose suture closure was successful without bleeding or hematoma. Vascade venous closure was successful without bleeding or hematoma. ESTIMATED BLOOD LOSS: 10 mL. CONTRAST TOTAL: 50 mL. KENJI DAVIS MD Feb 10, 2025 16:43
== END 2025-02-10 19:30 | disposition home or self-care (01) ==
LOC: DAH 05:55
PROVIDERS: ATTEND Internal Medicine Cardiovascular Disease
DX: I35.0 Nonrheumatic aortic (valve) stenosis (principal); I42.8 Other cardiomyopathies; I25.119 Atherosclerotic heart disease of native coronary artery with unspecified angina pectoris; I11.0 Hypertensive heart disease with heart failure; I50.42 Chronic combined systolic (congestive) and diastolic (congestive) heart failure; R06.09 Other forms of dyspnea; I49.5 Sick sinus syndrome; I48.0 Paroxysmal atrial fibrillation; I47.19 Other supraventricular tachycardia; E11.9 Type 2 diabetes mellitus without complications; I10 Essential (primary) hypertension; I48.4 Atypical atrial flutter; E78.5 Hyperlipidemia, unspecified; I05.2 Rheumatic mitral stenosis with insufficiency; Z95.5 Presence of coronary angioplasty implant and graft; Z95.810 Presence of automatic (implantable) cardiac defibrillator; Z79.899 Other long term (current) drug therapy; Z79.84 Long term (current) use of oral hypoglycemic drugs; Z86.2 Personal history of diseases of the blood and blood-forming organs and certain disorders involving the immune mechanism; Z98.890 Other specified postprocedural states; Z90.49 Acquired absence of other specified parts of digestive tract; Z90.710 Acquired absence of both cervix and uterus; Z82.49 Family history of ischemic heart disease and other diseases of the circulatory system; Z83.3 Family history of diabetes mellitus
CPT/HCPCS: 80048 ×2; 83880; 85025; 85610; 85730; 87086; 81001; 36415 ×2; 71045; 93005; 99157 ×4; 99156; 93460; 82948 ×2; A4223 ×3; Q9965; C1769; C1894 ×3; C1760 ×2; C1893; J3010; J3490 ×2; J7030; J2250; J1644 ×2; Q9967 ×2; A4215; A4222; A4221; A4663; A4216; A4606; 96360; 96361; J0583

== ENCOUNTER → 2025-02-18 | Outpatient (CLI) | payer OTHER, MEDICAID ==
[~2025-02-18] MED LIST changes: +IOHEXOL 350 MG/ML 100ML INFUS..BTL IV ONE
--- NOTE | 2025-02-18 13:32 | HMCIMG ---
Exam Type: CT angiogram chest, abdomen and pelvis and proximal lower extremities with contrast Technique: Routine helical scanning at 5mm collimation through the chest, abdomen and pelvis after contrast administration. In addition, sagittal and coronary formations of the abdomen pelvis and surface rendering three-dimensional reconstructions of the abdominal aorta and the bilateral lower extremity arterial system were performed. Volumetric spin and MIP rendering of the abdominal aorta and the lower extremity arterial system is done bilaterally as well. Findings: The bolus is of good quality for diagnosis of pulmonary embolism. There are no pulmonary arterial filling defects. Right lower lobe superior segment noncalcified nodule, 10 mm. Consider 6 month follow-up with noncontrast CT chest. No pleural effusion.. The central airways are widely patent. There is no axillary, mediastinal or hilar adenopathy. The heart and great vessels opacify normally. Limited evaluation of the abdomen demonstrates no gross acute abnormalities. Review of bone windows demonstrates no osteoblastic or lytic lesions. The kidneys are unremarkable. No evidence of nephro or ureterolithiasis is found. No hydronephrosis or ureteral dilatation is seen. The liver is unremarkable. It shows no focal masses. The spleen shows normal size and attenuation. It is not enlarged. The pancreas shows normal appearance without masses, atrophy, or calcifications, or duct prominence. There is no peripancreatic fluid. The gallbladder is unremarkable. It shows no calculi. There is no pericholecystic stranding. The gallbladder wall is not thickened. The adrenals are normal. No masses are seen. The small and large bowel and pelvic viscera are unremarkable except for diverticulosis of the colon without evidence of acute inflammation to suggest diverticulitis. There is also evidence of constipation. The appendix is unremarkable. There is no retroperitoneal lymphadenopathy or lymphadenopathy elsewhere throughout the abdomen and pelvis. The aorta and inferior vena cava and other vascular structures are unremarkable. The bony structures unremarkable for the patient's age. The abdominopelvic wall soft tissue structures and muscular compartments are unremarkable. Calcifications of the aortic leaflets seen. Vascular examination is otherwise unremarkable. The visualized abdominal aorta is unremarkable and so are the major branches. Examination of the aorta shows no dissection or rupture. There is atheromatous plaque. After contrast administration, there is no abnormal enhancement. IMPRESSION: Aortic valve calcifications. Diverticulosis. Constipation. Right lower lobe superior segment noncalcified nodule, 10 mm. Consider 6 month follow-up with noncontrast CT chest.
--- NOTE | 2025-02-20 15:59 | CARDIOLOGY ---
RAD REPORT: [facility] CT ANGIO RADIOLOGY REPORT: CORONARY CT ANGIOGRAPHY DATE: Feb 20, 2025 QUALITY: Excellent CLINICAL HISTORY AND INDICATION: [TAVR ] TECHNIQUE: After obtaining a preliminary business analysis consultant image, contrast imaging performed on an Aquillon [id number] scanner. A dedicated, limited window, coronary imaging protocol was used, with single breath-hold, retrospective ECG gating, and automated arrhythmia rejection. 100 cc of low osmolar contrast agent: Omnipaque 350 was delivered via a 18-gauge IV catheter in the right antecubital fossa, using a power injector and followed by 60 cc of normal saline bolus as a chaser. Collimated images were reformatted at 0.5 mm intervals, and sent to an offline independent workstation for interpretation, using 3D anatomic reconstructions: Curved multiplanar reconstructions, maximum intensity projections, and multiplanar imaging. No metoprolol was administered prior to scanning due to low baseline heart rate. No SL nitroglycerin was given. CORONARY ARTERY DESCRIPTIONS: The coronary arteries arise in normal position. Left main coronary artery: Normal caliber vessel that bifurcates into the LAD and LCx. No stenosis. Left anterior descending coronary artery: Normal caliber vessel and gives rise to diagonal and septal branches. There is a mid LAD OLIVER and a mid to distal LAD OLIVER. Left circumflex coronary artery: Normal caliber, nondominant and gives rise to two large OM branches. There is motion artifact from tachycardia in the mid to distal LCx and not able to quantitate luminal stenosis. Right coronary artery: Large, dominant vessel giving rise to the PL and PDA branches. There is a mid RCA OLIVER. Florinda Witt MD Cardiovascular Disease [facility] FLORINDA WITT MD Feb 20, 2025 15:59
== END | disposition home or self-care (01) ==
LOC: RAH 07:51
PROVIDERS: ATTEND Internal Medicine Cardiovascular Disease
DX: I35.8 Other nonrheumatic aortic valve disorders (principal); K57.90 Diverticulosis of intestine, part unspecified, without perforation or abscess without bleeding; K59.00 Constipation, unspecified; I35.0 Nonrheumatic aortic (valve) stenosis
CPT/HCPCS: 74174; 75574; Q9967